=== PATIENT | female | born 1930 | race Caucasian/White ===

== ENCOUNTER 2016-08-02 22:28 | Inpatient (IN) | payer OTHER, MEDICARE ==
[~2016-08-02] VITALS: Ht 167.6 cm; Wt 58.3 kg
[~2016-08-02 22:28] MED LIST: ADVAI100I INH; ASPI81TA82 PO; BOOSLIQ PO; BRIM.15%O BOTH EYES; CALC600T34 PO; DOXY100 PO; DUONI NEB; FEXO180 PO; LOVA10TA PO; MUPI2CRE3 EX; OMEG5CAP; OMEP20TA PO; PRED20 PO; TAB-TAB PO; TIMO0.255 OU; TIOT18I INH; Z.0.OXYGENDME NC
[2016-08-02 22:50] VITALS: BP 112/60; PULSE 92; RESP 18; TEMP 100.6; O2SAT 100
[2016-08-02 22:58] VITALS: BP 112/60; PULSE 92; RESP 21; TEMP 100.6; O2SAT 100
[2016-08-02] MEDS ORDERED: SODIUM CHLOR 0.9% 1000 ML INJ 1,000 ML IV ONE (23:01)
[2016-08-02] MEDS ORDERED: CEFEPIME INJ 2,000 MG in SODIUM CHLORIDE 0.9% INJ 100 ML IV STA (23:01)
[2016-08-02] MEDS ORDERED: ACETAMINOPHEN 325 MG TAB PO ONE (23:15)
[2016-08-02 23:36] LABS: AUTOMATED NEUTROPHIL # 19.5 TH/MM3 (1.8-7.7); BASOPHIL # 0.1 TH/MM3 (0-0.2); BASOPHIL % 0.2 % (0.0-2.0); HEMATOCRIT 28.9 % (35.0-46.0); LYMPH % 2.5 % (9.0-44.0); LYMPHOCYTE # 0.5 TH/MM3 (1.0-4.8); MEAN CORPUSCULAR HEMOGLOBIN 22.1 PG (27.0-34.0); MEAN CORPUSCULAR HGB CONC 31.5 % (32.0-36.0); MONO % 3.8 % (0.0-8.0); NEUT % 93.5 % (16.0-70.0); PLATELET COUNT 297 TH/MM3 (150-450); RED BLOOD COUNT 4.13 MIL/MM3 (4.00-5.30); RED CELL DISTRIBUTION WIDTH 18.1 % (11.6-17.2); WHITE BLOOD COUNT 20.8 TH/MM3 (4.0-11.0)
[2016-08-02 23:39] LABS: BACTERIA, URINE RARE /hpf; BLOOD, URINE TRACE (NEG); COMMENT (UR) CATH-CULTURE IND; CULTURE IF INDICATED CATH CULTURE IND; GLUCOSE,URINE NEG (NEG); KETONE, URINE NEG (NEG); MUCUS URINE FEW /lpf (OCC); NITRITE,URINE NEG (NEG); PH, URINE 6.5 (5.0-8.5); RENAL EPITHELIAL CELLS <1 /hpf; SQUAMOUS EPITHELIAL CELL URINE 1 /hpf (0-5); URINE COLOR YELLOW (YELLW/STRAW)
[2016-08-02 23:44] LABS: APTT (PATIENT) 25.2 SEC (24.3-30.1); PROTHROMBIN TIME - PATIENT 11.2 SEC (9.8-11.6)
[2016-08-02 23:47] LABS: HEMO FLAGS AUTO DIFF
[2016-08-02 23:50] LABS: ALT (GPT) 12 U/L (10-53); ANION GAP 10 MEQ/L (5-15); AST (GOT) 18 U/L (15-37); BICARBONATE 25.3 MEQ/L (21.0-32.0); BLOOD UREA NITROGEN 15 MG/DL (7-18); CHLORIDE 102 MEQ/L (98-107); GLOMERULAR FILTRATION RATE 70 ML/MIN (>89); SODIUM (NA) 137 MEQ/L (136-145)
[2016-08-02 23:54] LABS: ALKALINE PHOSPHATASE 83 U/L (45-117); TOTAL BILIRUBIN ADULT 0.5 MG/DL (0.2-1.0)
[2016-08-03] VITALS (13 sets, daily range): BP systolic 88–143; BP diastolic 50–75; PULSE 61–89; RESP 16–25; TEMP 96.7–98.6; O2SAT 93–100
--- NOTE | 2016-08-03 00:03 | RADRPT ---
EXAM DATE/TIME: 08/02/2016 23:38 [facility] COMPARISON: No previous studies available for comparison. INDICATIONS : Altered mental status with fever. MEDICAL HISTORY : Chronic obstructive pulmonary disease. Dementia SURGICAL HISTORY : None. ENCOUNTER: Initial ACUITY: 1 day PAIN SCORE: 0/10 LOCATION: Bilateral chest FINDINGS: A single view of the chest demonstrates the lungs to be symmetrically aerated without evidence of mas s, infiltrate or effusion. The cardiomediastinal contours are unremarkable. Osseous structures are intact. CONCLUSION: No acute disease. Jaden Hendrix Jr., MD on August 03, 2016 at 0:00 Board Certified Radiologist. This report was verified electronically.
[2016-08-03] MEDS ORDERED: ASPI81CH37 CHEW (00:37)
[2016-08-03] MEDS ORDERED: BOOSLIQ PO (00:37)
[2016-08-03] MEDS ORDERED: ZOLO100T PO (00:37)
[2016-08-03] MEDS ORDERED: LATA0.002 EACH EYE (00:37)
[2016-08-03] MEDS ORDERED: BRIM0.2S4 EACH EYE (00:37)
[2016-08-03] MEDS ORDERED: LUTE20CA PO (00:37)
[2016-08-03] MEDS ORDERED: MULTCAP13 PO (00:37)
[2016-08-03] MEDS ORDERED: TIMO0.5S30 EACH EYE (00:37)
[2016-08-03] MEDS ORDERED: IOHEXOL 350 MG/ML 10 ML VIAL (for RAD DIAG) IV ONE (00:54)
[2016-08-03] MEDS ORDERED: ADVA100A INH (00:57)
[2016-08-03] MEDS ORDERED: OMEP20TA PO (00:57)
--- NOTE | 2016-08-03 01:20 | RADRPT ---
EXAM DATE/TIME: 08/03/2016 00:50 [facility] COMPARISON: No previous studies available for comparison. INDICATIONS : Altered mental status. RADIATION DOSE: 56.35 CTDIvol (mGy) MEDICAL HISTORY : Chronic obstructive pulmonary disease. Hemophilia SURGICAL HISTORY : None. ENCOUNTER: Initial ACUITY: 1 day PAIN SCALE: Non-responsive LOCATION: cranial TECHNIQUE: Multiple contiguous axial images were obtained of the head. Using automated exposure control and adj ustment of the mA and/or kV according to patient size, radiation dose was kept as low as reasonably a chievable to obtain optimal diagnostic quality images. 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 The ventricles are normal for age. No evidence of midline shift, mass lesion, hemorrhage or acu te infarction. No extra-axial fluid collections are seen. POSTERIOR FOSSA: The cerebellum and brainstem are intact. The 4th ventricle is midline. The cerebellopontine angle i s unremarkable. EXTRACRANIAL: The visualized portion of the orbits is intact. SKULL: The calvaria is intact. No evidence of skull fracture. CONCLUSION: No acute disease. Jaden Hendrix Jr., MD on August 03, 2016 at 1:17 Board Certified Radiologist. This report was verified electronically.
--- NOTE | 2016-08-03 01:25 | RADRPT ---
EXAM DATE/TIME: 08/03/2016 00:54 [facility] COMPARISON: No previous studies available for comparison. INDICATIONS : Abdomen pain. IV CONTRAST: 75 cc Omnipaque 350 (iohexol) IV ORAL CONTRAST: No oral contrast ingested. RADIATION DOSE: 9.96 CTDIvol (mGy) MEDICAL HISTORY : Chronic obstructive pulmonary disease. Hemophilia SURGICAL HISTORY : None. ENCOUNTER: Initial ACUITY: 1 day PAIN SCALE: Non-responsive LOCATION: abdomen TECHNIQUE: Volumetric scanning of the abdomen and pelvis was performed. Using automated exposure control and ad justment of the mA and/or kV according to patient size, radiation dose was kept as low as reasonably achievable to obtain optimal diagnostic quality images. FINDINGS: Breathing motion artifact degrades the study. LOWER LUNGS: 1.6 x 1.4 cm spiculated nodule is seen sitting atop the right hemidiaphragm. Emphysematous changes an d mild chronic interstitial changes also noted. LIVER: Homogeneous density without lesion. There is no dilation of the biliary tree. No calcified gallston es. SPLEEN: Normal size without lesion. PANCREAS: Within normal limits. KIDNEYS: Normal in size and shape. There is no mass, stone or hydronephrosis. A 1 cm simple cyst is seen invo lving the anterior midpole of the right kidney. ADRENAL GLANDS: Within normal limits. VASCULAR: Diffusely calcified abdominal aorta. No gross aneurysmal change seen. BOWEL/MESENTERY: The stomach, small bowel, and colon demonstrate no acute abnormality. There is no free intraperitone al air or fluid. Multiple colonic diverticuli. No acute inflammation observed. ABDOMINAL WALL: Within normal limits. RETROPERITONEUM: There is no lymphadenopathy. BLADDER: No wall thickening or mass. REPRODUCTIVE: There is a 2.6 cm cystic structure within the right adnexa. Hounsfield units are 17. Uterus is atroph ic and in the midline. No free fluid. INGUINAL: There is no lymphadenopathy or hernia. MUSCULOSKELETAL: Within normal limits for patient age. CONCLUSION: 1. No acute abnormality to explain the patient's pain. 2. 1.6 x 1.4 cm nodule involving the right lung base. A short-term followup CT of the thorax in 3-6 m [facility] is suggested. At this point a malignancy cannot be excluded. 3. 2.6 cm cystic structure within the right adnexa which is likely ovarian in nature. It can be furth er assessed with a short-term followup pelvic ultrasound if clinically warranted. 4. Colonic diverticulosis. Jaden Hendrix Jr., MD on August 03, 2016 at 1:19 Board Certified Radiologist. This report was verified electronically.
--- NOTE | 2016-08-03 01:33 | PD ---
HPI Chief Complaint: Fever Time Seen by Provider: 22:55 Travel History International Travel<30 days: No Contact w/Intl Traveler<30days: No Traveled to known affect area: No History of Present Illness HPI Patient is a 85 year old female who comes in from her [place] due to fever and altered mental status. Per EMS, she has history of dementia, but is usually more awake and active then she has been. Patient is unable to provide any history. [facility] Past Medical History Medical History: Unable to Obtain Autoimmune Disease: No Cancer: Yes High Cholesterol: No Chemotherapy: Yes COPD: Yes Endocrine: No Glaucoma: Yes Genitourinary: No Immune Disorder: No Musculoskeletal: No Neurologic: No Psychiatric: No Respiratory: Yes Radiation Therapy: Yes ?: Unknown Past Surgical History Surgical History: Unable to Obtain Section: Yes Eye Surgery: Yes (detach retina) Social History Alcohol Use: No Tobacco Use: No (quit two years ago ) Substance Use: No Allergies-Medications (Allergen,Severity, Reaction): Coded Allergies: Biaxin (Verified Allergy, Severe, NAUSEA VOMITING, 08/02/16) Bactrim (Verified Allergy, Unknown, 08/02/16) Enalapril (Verified Allergy, Unknown, 08/02/16) Lovastatin (Verified Allergy, Unknown, 08/02/16) Pravachol (Verified Allergy, Unknown, 08/02/16) *MDRO Multi-Drug Resistant Organism (Verified Adverse Reaction, Unknown, ) 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 Zoloft (Sertraline HCl) 100 Mg Tab 100 Mg PO DAILY Timolol Opth Drops 0.5 % Soln 1 Drop EACH EYE BID Lutein 20 Mg Cap 20 Mg PO DAILY Multi Complete (Multiple Vitamins W/ Minerals) 1 Cap Cap Unknown Dose PO DAILY Latanoprost Opth Drops (Latanoprost) 0.005% Drops 1 Drop EACH EYE HS Refrigerate until opened. Brimonidine Opth Drops (Brimonidine Tartrate) 0.2% Soln 1 Drop EACH EYE TID Boost Plus (Nutritional Supplements) 1 Liq Liq Unknown Dose PO DAILY Aspirin Low Dose (Aspirin) 81 Mg Chew 81 Mg CHEW DAILY Review of Systems ROS Limitations: Altered Mental Status Physical Exam Narrative GENERAL: Awake and alert, appears uncomfortable. SKIN: Focused skin assessment warm/dry. erythema to the right lower extremity, warm to the touch. HEAD: Atraumatic. Normocephalic. EYES: Pupils equal and round. No scleral icterus. ENT: Mucous membranes pink and moist. NECK: Trachea midline. No JVD. CARDIOVASCULAR: Regular rate and rhythm. No murmur appreciated. RESPIRATORY: No accessory muscle use. Clear to auscultation. Breath sounds equal bilaterally. GASTROINTESTINAL: Abdomen soft, nondistended. Tender to palpation of her suprapubic area. MUSCULOSKELETAL: No obvious deformities. No clubbing. No cyanosis. No edema. NEUROLOGICAL: Awake and alert, but not oriented. No obvious cranial nerve deficits. Motor grossly within normal limits. Data Data Last Documented VS Vital Signs Date Time Temp Pulse Resp B/P Pulse Ox O2 Delivery O2 Flow Rate FiO2 08/03/16 01:12 82 21 109/53 100 Nasal Cannula 2 08/02/16 22:58 100.6 Orders Electrocardiogram (08/02/16 23:) Complete Blood Count With Diff (08/02/16 23:) Comprehensive Metabolic Panel (08/02/16 23:) Prothrombin Time / Inr (Pt) (08/02/16:) Act Partial Throm Time (Ptt) (08/02/16 23:) Lactic Acid Sepsis Protocol (08/02/16 23:) Phosphorus (Po4) (08/02/16 23:) Lipase (08/02/16 23:) Troponin I (08/02/16:) Urinalysis - C+S If Indicated (08/02/16:) Ua Includes Microscopic (08/02/16:) Blood Culture (08/02/16:) Chest, Single Ap (08/02/16:) Blood Glucose (08/02/16 23:) Ecg Monitoring (08/02/16:) Iv Access Insert/Monitor (08/02/16 23:) Cath For Specimen (4/5/17 23:01) Oximetry (08/02/16 23:01) Oxygen Administration (08/02/16 23:01) Acetaminophen (Tylenol) (08/02/16 23:15) Ct Brain W/O Iv Contrast(Rout) (08/02/16 23:01) Cefepime Inj (Maxipime Inj) (08/02/16 23:01) Sodium Chlor 0.9% 1000 Ml Inj (Ns 1000 M (08/02/16 23:01) Urine Culture (08/02/16 23:25) Ct Abd/Pel W Iv Contrast(Rout) (08/03/16 ) Diet Regular Basic (08/03/16 Breakfast) Vital Signs (Adult) LATASHA.Q4H (08/03/16 01:49) Acetaminophen (Tylenol) (08/03/16 02:00) Ondansetron Inj (Zofran Inj) (08/03/16 02:00) Ceftriaxone Inj (Rocephin Inj) (08/03/16 06:00) Complete Blood Count With Diff (08/04/16 06:00) Admit Order (Ed Use Only) (08/03/16 ) Labs Laboratory Tests Test 08/02/16 23:25 Prothrombin Time 11.2 SEC Prothromb Time International 1.0 RATIO Ratio Activated Partial 25.2 SEC Thromboplast Time Sodium Level 137 MEQ/L Potassium Level 4.0 MEQ/L Chloride Level 102 MEQ/L Carbon Dioxide Level 25.3 MEQ/L Anion Gap 10 MEQ/L Blood Urea Nitrogen 15 MG/DL Creatinine 0.78 MG/DL Estimat Glomerular Filtration 70 ML/MIN Rate Random Glucose 119 MG/DL Lactic Acid Level 1.4 mmol/L Calcium Level 9.0 MG/DL Phosphorus Level 2.5 MG/DL Total Bilirubin 0.5 MG/DL Aspartate Amino Transf 18 U/L (AST/SGOT) Alanine Aminotransferase 12 U/L (ALT/SGPT) Alkaline Phosphatase 83 U/L Troponin I LESS THAN 0.02 NG/ML Total Protein 7.7 GM/DL Albumin 3.1 GM/DL Lipase 92 U/L White Blood Count 20.8 TH/MM3 Red Blood Count 4.13 MIL/MM3 Hemoglobin 9.1 GM/DL Hematocrit 28.9 % Mean Corpuscular Volume 70.0 FL Mean Corpuscular Hemoglobin 22.1 PG Mean Corpuscular Hemoglobin 31.5 % Concent Red Cell Distribution Width 18.1 % Platelet Count 297 TH/MM3 Mean Platelet Volume 9.8 FL Neutrophils (%) (Auto) 93.5 % Lymphocytes (%) (Auto) 2.5 % Monocytes (%) (Auto) 3.8 % Eosinophils (%) (Auto) 0.0 % Basophils (%) (Auto) 0.2 % Neutrophils # (Auto) 19.5 TH/MM3 Lymphocytes # (Auto) 0.5 TH/MM3 Monocytes # (Auto) 0.8 TH/MM3 Eosinophils # (Auto) 0.0 TH/MM3 Basophils # (Auto) 0.1 TH/MM3 CBC Comment AUTO DIFF Differential Total Cells 100 Counted Neutrophils % (Manual) 76 % Band Neutrophils % 18 % Lymphocytes % 5 % Monocytes % 1 % Neutrophils # (Manual) 19.6 TH/MM3 Differential Comment FINAL DIFF MANUAL Toxic Granulation 1+ Toxic Vacuolation PRESENT Platelet Estimate NORMAL Platelet Morphology Comment NORMAL Ovalocytes 1+ Urine Color YELLOW Urine Turbidity HAZY Urine pH 6.5 Urine Specific [place] 1.018 Urine Protein 30 mg/dL Urine Glucose (UA) NEG mg/dL Urine Ketones NEG mg/dL Urine Occult Blood TRACE Urine Nitrite NEG Urine Bilirubin NEG Urine Urobilinogen 2.0 MG/DL Urine Leukocyte Esterase MOD Urine RBC 4 /hpf Urine WBC 29 /hpf Urine Squamous Epithelial 1 /hpf Cells Urine Renal Epithelial Cells <1 /hpf Urine Amorphous Sediment RARE Urine Bacteria RARE /hpf Urine Mucus FEW /lpf Microscopic Urinalysis Comment CATH-CULTURE IND MDM Medical Decision Making Medical Screen Exam Complete: Yes Emergency Medical Condition: Yes Interpretation(s) ECG shows normal sinus rhythm at 80, no ST elevation or depression, incomplete right bundle-branch block Differential Diagnosis Sepsis versus pneumonia versus UTI versus electrolyte abnormality Narrative Course Patient is an 85-year-old female comes in from the senior living due to altered mental status and fever. Exam shows some suprapubic tenderness. IV established , labs sent. Urinalysis positive for infection. Labs show white blood cell count of 20. CT head performed shows no acute abnormalities. CT abdomen and pelvis performed shows no acute abnormalities, there is a small lung nodule any ovarian cystic mass. Patient given cefepime, IV fluids, Tylenol. Admitted for further management. Diagnosis Primary Impression: Sepsis Qualified Code: A41.9 - Sepsis, due to unspecified organism Additional Impression: UTI (urinary tract infection) Qualified Code: N30.00 - Acute cystitis without hematuria Admitting Information Admitting Physician Requests: it Karoline Castellanos MD Aug 03, 2016 01:33
[2016-08-03] MEDS ORDERED: ONDANSETRON HCL 4 MG/2 ML VIAL IV PUSH PRN (02:00)
[2016-08-03 02:06] LABS: BANDS 18 % (0-6); NEUTROPHIL # MANUAL DIFF 19.6 TH/MM3 (1.8-7.7); PLATELET ESTIMATE SMEAR NORMAL (NORMAL); PLATELET MORPHOLOGY NORMAL (NORMAL); POLYS (SEG NEUTROPHILS) 76 % (16-70); SCAN/DIFF FINAL DIFF MANUAL; TOXIC GRANULATION 1+ (NORMAL); WBC DIFF SAMPLE 100
[2016-08-03 02:07] LABS: OVALOCYTES 1+ (NORMAL); TOXIC VACUOLATION PRESENT (NONE SEEN)
--- NOTE | 2016-08-03 02:51 | HHI.HP ---
[facility] Service [facility] Primary Care Physician Noe Acharya Admission Diagnosis urosepsis Diagnoses: (1) Sepsis Diagnosis: Principal (2) UTI (urinary tract infection) Diagnosis: Principal Chief Complaint: fever Travel History International Travel<30 Days: No Contact w/Intl Traveler <30 Da: No Traveled to Known Affected Are: No Sepsis Criteria SIRS Criteria (2 or more): Heart rate over 90, WBC > 41402, < 4000 or > 10% bands Sepsis Criteria (SIRS+source): Infect source susp/known Criteria Outcome: Meets sepsis criteria History of Present Illness patient is a 85 y/o female, alf resident, with history of dementia who was sent to the hospital because of fever and altered mental status. information is limited due to the patient's dementia. she was noted to have a fever at the time of presentation to ER. according to ER noted she was not as alert as her baseline earlier. Review of Systems ROS Limitations: Poor Historian Constitutional: COMPLAINS OF: Fever Past Family Social History Past Medical History dementia COPD bladder cancer dyslipidemia osteoporosis Past Surgical History Reported Medications Omeprazole 20 Mg Tab 20 Mg PO GERD PRN Advair Diskus Inh (Fluticasone-Salmeterol Inh) 100-50 Mcg/Blist Aer 1 Puff INH BID Rinse mouth after use. Zoloft (Sertraline HCl) 100 Mg Tab 100 Mg PO DAILY Timolol Opth Drops 0.5 % Soln 1 Drop EACH EYE BID Lutein 20 Mg Cap 20 Mg PO DAILY Multi Complete (Multiple Vitamins W/ Minerals) 1 Cap Cap Unknown Dose PO DAILY Latanoprost Opth Drops (Latanoprost) 0.005% Drops 1 Drop EACH EYE HS Refrigerate until opened. 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) Uncoded Allergies: DIPTHERIA INJECTION (Allergy, Unknown, 11/15/15) Active Ordered Medications Current Medications Acetaminophen 650 mg 650 mg ONCE ONCE PO Last administered on 08/02/16 23:43; Start 08/02/16 at 23:15; Stop 08/02/16 at 23:22; Status DC Cefepime HCl 2000 mg/Sodium Chloride 100 ml @ 200 mls/hr ONCE STAT IV Last administered on 08/02/16 23:43; Start 08/02/16 at 23:01; Stop 08/02/16 at 23:30; Status DC Sodium Chloride (NS 1000 ml Inj) 1,000 ml @ 1,000 mls/hr Q1H ONCE IV Last administered on 08/02/16 23:43; Start 08/02/16 at 23:01; Stop 08/03/16 at 00:00; Status DC Acetaminophen (Tylenol) 650 mg Q4H PRN PO FEVER/PAIN 1-10; Start 08/03/16 at 02: 00 Ondansetron HCl 4 mg 4 mg Q8H PRN IV PUSH NAUSEA; Start 08/03/16 at 02:00 Ceftriaxone Sodium/Sodium Chloride (Rocephin Inj/NS Inj) 100 ml @ 200 mls/hr Q24H IV ; Start 08/03/16 at 06:00 Family History could not be obtained. Social History alf resident. Physical Exam Vital Signs Vital Signs Date Time Temp Pulse Resp B/P Pulse Ox O2 Delivery O2 Flow Rate FiO2 08/03/16 01:12 82 21 109/53 100 Nasal Cannula 2 08/03/16 00:29 100 2 08/02/16 22:58 100.6 92 21 112/60 100 Nasal Cannula 2 08/02/16 22:55 94 21 100 2 08/02/16 22:50 100.6 92 18 112/60 100 Physical Exam GENERAL: This is a well-nourished, well-developed patient, in no apparent distress. SKIN: No rashes, ecchymoses or lesions. Cool and dry. HEAD: Atraumatic. Normocephalic. No temporal or scalp tenderness. EYES: Pupils equal round and reactive. Extraocular motions intact. No scleral icterus. No injection or drainage. ENT: Nose without bleeding, purulent drainage or septal hematoma. Throat without erythema, tonsillar hypertrophy or exudate. Uvula midline. Airway patent. NECK: Trachea midline. No JVD or lymphadenopathy. Supple, nontender, no meningeal signs. CARDIOVASCULAR: Regular rate and rhythm without murmurs, gallops, or rubs. RESPIRATORY: Clear to auscultation. Breath sounds equal bilaterally. No wheezes , rales, or rhonchi. GASTROINTESTINAL: Abdomen soft, non-tender, nondistended. No hepato-splenomegaly , or palpable masses. No guarding. MUSCULOSKELETAL: Extremities without clubbing, cyanosis, or edema. No joint tenderness, effusion, or edema noted. No calf tenderness. Negative Homans sign bilaterally. NEUROLOGICAL: demented. Laboratory Laboratory Tests Test 08/02/16 23:25 Prothrombin Time 11.2 Prothromb Time International 1.0 Ratio Activated Partial 25.2 Thromboplast Time Sodium Level 137 Potassium Level 4.0 Chloride Level 102 Carbon Dioxide Level 25.3 Anion Gap 10 Blood Urea Nitrogen 15 Creatinine 0.78 Estimat Glomerular Filtration 70 Rate Random Glucose 119 Lactic Acid Level 1.4 Calcium Level 9.0 Phosphorus Level 2.5 Total Bilirubin 0.5 Aspartate Amino Transf 18 (AST/SGOT) Alanine Aminotransferase 12 (ALT/SGPT) Alkaline Phosphatase 83 Troponin I LESS THAN 0.02 Total Protein 7.7 Albumin 3.1 Lipase 92 White Blood Count 20.8 Red Blood Count 4.13 Hemoglobin 9.1 Hematocrit 28.9 Mean Corpuscular Volume 70.0 Mean Corpuscular Hemoglobin 22.1 Mean Corpuscular Hemoglobin 31.5 Concent Red Cell Distribution Width 18.1 Platelet Count 297 Mean Platelet Volume 9.8 Neutrophils (%) (Auto) 93.5 Lymphocytes (%) (Auto) 2.5 Monocytes (%) (Auto) 3.8 Eosinophils (%) (Auto) 0.0 Basophils (%) (Auto) 0.2 Neutrophils # (Auto) 19.5 Lymphocytes # (Auto) 0.5 Monocytes # (Auto) 0.8 Eosinophils # (Auto) 0.0 Basophils # (Auto) 0.1 CBC Comment AUTO DIFF Differential Total Cells 100 Counted Neutrophils % (Manual) 76 Band Neutrophils % 18 Lymphocytes % 5 Monocytes % 1 Neutrophils # (Manual) 19.6 Differential Comment FINAL DIFF MANUAL Toxic Granulation 1+ Toxic Vacuolation PRESENT Platelet Estimate NORMAL Platelet Morphology Comment NORMAL Ovalocytes 1+ Urine Color YELLOW Urine Turbidity HAZY Urine pH 6.5 Urine Specific [place] 1.018 Urine Protein 30 Urine Glucose (UA) NEG Urine Ketones NEG Urine Occult Blood TRACE Urine Nitrite NEG Urine Bilirubin NEG Urine Urobilinogen 2.0 Urine Leukocyte Esterase MOD Urine RBC 4 Urine WBC 29 Urine Squamous Epithelial 1 Cells Urine Renal Epithelial Cells <1 Urine Amorphous Sediment RARE Urine Bacteria RARE Urine Mucus FEW Microscopic Urinalysis Comment CATH-CULTURE IND Date/Time Procedure Status Source Growth 08/02/16 23:25 Urine Culture Received Urine Catheterized Urine Pending 08/02/16 23:25 Aerobic Blood Culture Received Blood Peripheral Pending 08/02/16 23:25 Anaerobic Blood Culture Received Blood Peripheral Pending Result Diagram: 08/02/16 2325 08/02/165 Imaging Last Impressions Abdomen/Pelvis CT 08/03/16 0000 Signed Impressions: Service Date/Time: July 00:54 - CONCLUSION: 1. No acute abnormality to explain the patient's pain. 2. 1.6 x 1.4 cm nodule involving the right lung base. A short-term followup CT of the thorax in 3-6 months is suggested. At this point a malignancy cannot be excluded. 3. 2.6 cm cystic structure within the right adnexa which is likely ovarian in nature. It can be further assessed with a short-term followup pelvic ultrasound if clinically warranted. 4. Colonic diverticulosis. Jaden Hendrix Jr., MD Head CT 08/02/162300 Signed Impressions: Service Date/Time: July 00:50 - CONCLUSION: No acute disease. Jaden Hendrix Jr., MD Chest X-Ray 08/02/162300 Signed Impressions: Service Date/Time: Tuesday, August 02, 2016 23:38 - CONCLUSION: No acute disease. Jaden Hendrix Jr., MD Assessment and Plan Assessment and Plan A/P - sepsis ( leukocytosis/ tachycardia/fever) due to UTI continue IV antibiotic- follow the cultures -COPD with no exacerbation;resume advair- neb treatment as needed -glaucoma; resume home eye drops -DVT prophylaxis with SCD's -DNR status Discussed Condition With ER physician. Physician Certification 2 Midnight Certification Type: Admission for Inpatient Services Order for Inpatient Services The services are ordered in accordance with Medicare regulations or non- Medicare payer requirements, as applicable. In the case of services not specified as inpatient-only, they are appropriately provided as inpatient services in accordance with the 2-midnight benchmark. Estimated LOS (days): 2 days is the estimated time the patient will need to remain in the hospital, assuming treatment plan goals are met and no additional complications. Post-Hospital Plan: SNF Problem Qualifiers (1) Sepsis: Qualified Code: A41.9 - Sepsis, due to unspecified organism (2) UTI (urinary tract infection): Qualified Code: N30.00 - Acute cystitis without hematuria Colleen Frias MD Aug 03, 2016 02:51
[2016-08-03] MEDS ORDERED: RESP: ALBUTEROL 1.25 MG/3 ML NEB (PRN) NEB (03:00)
[2016-08-03] MEDS ORDERED: PANTOPRAZOLE SOD 20 MG DELAYED RELEASE TAB PO PRN (03:15)
[2016-08-03] MEDS ORDERED: SODIUM CHLOR 0.9% 250 ML INJ 250 ML IV ONE (04:45)
[2016-08-03] MEDS: cefTRIAXone INJ 1,000 MG in SODIUM CHLORIDE 0.9% INJ 100 ML IV SCH (06:09)
[2016-08-03] MEDS: TIMOLOL MALEATE 0.5% OPHT SOLN 5 ML BTL EACH EYE SCH ×2 (09:00→20:24)
[2016-08-03] MEDS: BRIMONIDINE TARTRATE 0.2% OPHT SOLN 5 ML BTL EACH EYE SCH ×4 (09:00→20:23)
[2016-08-03] MEDS: SERTRALINE HCL 100 MG TAB PO SCH (09:21)
[2016-08-03] MEDS: ASPIRIN 81 MG CHEW TAB CHEW SCH (09:21)
[2016-08-03] MEDS: BUDESONIDE-FORMOTEROL 80/4.5 MCG INHALER INH SCH ×2 (10:06→20:25)
--- NOTE | 2016-08-03 11:28 | HHI.PR ---
Subjective Remarks Follow-up for sepsis/UTI Patient is AAO 2 and she is able to answer question appropriately. Patient able to tell me her name and that she was in the hospital. She could not tell me the date. Her son is at the bedside and stated that patient is back to her baseline. Patient has dementia and resides in a assisted. She remains afebrile. Deny any pain. No other complaints. Objective Vitals Vital Signs Date Time Temp Pulse Resp B/P Pulse Ox O2 Delivery O2 Flow Rate FiO2 08/03/16 08:27 73 24 107/65 100 Nasal Cannula 2 08/03/16 08:15 75 25 107/65 100 Nasal Cannula 2 08/03/16 06:09 66 25 113/55 100 Nasal Cannula 2 08/03/16 05:30 70 19 121/58 100 Nasal Cannula 2 08/03/16 04:29 68 17 88/50 100 Nasal Cannula 2 08/03/16 03:07 75 21 104/55 100 Nasal Cannula 2 08/03/16 01:12 82 21 109/53 100 Nasal Cannula 2 08/03/16 00:29 100 2 08/02/16 22:58 100.6 92 21 112/60 100 Nasal Cannula 2 08/02/16 22:55 94 21 100 2 08/02/16 22:50 100.6 92 18 112/60 100 Result Diagram: 08/02/16232408/02/162324 Objective Remarks GENERAL: in NAD CARDIOVASCULAR: Regular rate and rhythm without murmurs, gallops, or rubs. RESPIRATORY: Breath sounds equal bilaterally. No accessory muscle use. GASTROINTESTINAL: Abdomen soft, non-tender, nondistended. MUSCULOSKELETAL: No cyanosis, or edema. BACK: Nontender without obvious deformity. No CVA tenderness. Medications and IVs Current Medications Acetaminophen 650 mg 650 mg ONCE ONCE PO Last administered on 08/02/16 23:43; Start 08/02/16 at 23:15; Stop 08/02/16 at 23:22; Status DC Cefepime HCl 2000 mg/Sodium Chloride 100 ml @ 200 mls/hr ONCE STAT IV Last administered on 08/02/16 23:43; Start 08/02/16 at 23:01; Stop 08/02/16 at 23:30; Status DC Sodium Chloride (NS 1000 ml Inj) 1,000 ml @ 1,000 mls/hr Q1H ONCE IV Last administered on 08/02/16 23:43; Start 08/02/16 at 23:01; Stop 08/03/16 at 00:00; Status DC Acetaminophen (Tylenol) 650 mg Q4H PRN PO FEVER/PAIN 1-10; Start 08/03/16 at 02: 00 Ondansetron HCl 4 mg 4 mg Q8H PRN IV PUSH NAUSEA; Start 08/03/16 at 02:00 Ceftriaxone Sodium/Sodium Chloride (Rocephin Inj/NS Inj) 100 ml @ 200 mls/hr Q24H IV Last administered on 08/03/16 06:09; Start 08/03/16 at 06:00 Aspirin (Aspirin Chew) 81 mg DAILY CHEW Last administered on 08/03/16 09:21; Start 08/03/16 at 09:00 Brimonidine Tartrate (Alphagan 0.2% Opth Soln) 1 drop TID EACH EYE ; Start at 09:00 Latanoprost (Xalatan 0.005% Opth Soln) 1 drop HS EACH EYE ; Start 08/03/16 at 21: 00 Sertraline HCl (Zoloft) 100 mg DAILY PO Last administered on 08/03/16 09:21; Start 08/03/16 at 09:00 Timolol Maleate (Timoptic 0.5% Opth Soln) 1 drop BID EACH EYE ; Start 08/03/16 at 09:00 Budesonide/ Formoterol Fumarate (Symbicort 80-4.5 Mcg Inh) 2 puff BID INH Last administered on 08/03/16 10:06; Start 08/03/16 at 09:00 Pantoprazole Sodium (Protonix) 20 mg DAILY PRN PO SEE LABEL COMMENTS; Start 08/03/16 at 03:15 Albuterol Sulfate 1.25 mg 1.25 mg Q4HR NEB PRN NEB SHORTNESS OF BREATH; Start 08/03/16 at 03:00 Sodium Chloride (NS 250 ml Inj) 250 ml @ 250 mls/hr BOLUS ONCE IV Last administered on 08/03/16 04:45; Start 08/03/16 at 04:45; Stop 08/03/16 at 05:44; Status DC A/P Problem List: (1) Sepsis ICD Code: A41.9 Status: Acute (2) UTI (urinary tract infection) ICD Code: N39.0 Status: Acute Assessment and Plan Sepsis -Patient had leukocytosis, tachycardia, and fever. UA suggest UTI. -Patient given a dose of cefepime in the ED and was changed to Rocephin. We'll continue Rocephin since patient clinically is doing well. We'll continue Rocephin pending urine cultures. COPD with no exacerbation -resume advair- neb treatment as needed Dementia -Per patient's son patient is at her baseline at the moment. glaucoma -Continue with home medication. -DVT prophylaxis with SCD's DNR status Discharge Planning Patient will continue to require IV antibiotics pending urine cultures. Problem Qualifiers (1) Sepsis: Qualified Code: A41.9 - Sepsis, due to unspecified organism (2) UTI (urinary tract infection): Qualified Code: N30.00 - Acute cystitis without hematuria Shagufta Davenport MD Aug 03, 2016 11:28
--- NOTE | 2016-08-03 12:50 | EKG ---
Date Performed: 08/03/2016 Time Performed: 00:14:47 PTAGE: 85 years EKG: Sinus rhythm POSSIBLE LEFT ATRIAL ENLARGEMENT INCOMPLETE RIGHT BUNDLE BRANCH BLOCK BORDERLINE ECG PREVIOUS TRACING : 11/15/2015 12.41 Compared to prior tracing no significant change DOCTOR: Jeff Anaya Interpretating Date/Time 08/03/2016 12:49:13
[2016-08-03] MEDS: ACETAMINOPHEN 325 MG TAB PO PRN (18:18)
[2016-08-03] MEDS: LATANOPROST 0.005% OPHT SOLN 2.5 ML BTL EACH EYE SCH (20:24)
[2016-08-04] MEDS: cefTRIAXone INJ 1,000 MG in SODIUM CHLORIDE 0.9% INJ 100 ML IV SCH (04:42)
[2016-08-04 06:30] LABS: AUTOMATED NEUTROPHIL # 18.8 TH/MM3 (1.8-7.7); EOSINOPHIL % 0.1 % (0.0-4.0); HEMATOCRIT 31.1 % (35.0-46.0); LYMPH % 1.8 % (9.0-44.0); LYMPHOCYTE # 0.4 TH/MM3 (1.0-4.8); MEAN CELL VOLUME 70.3 FL (80.0-100.0); MEAN CORPUSCULAR HEMOGLOBIN 21.4 PG (27.0-34.0); MEAN CORPUSCULAR HGB CONC 30.4 % (32.0-36.0); MONO % 1.4 % (0.0-8.0); NEUT % 96.7 % (16.0-70.0); PLATELET COUNT 238 TH/MM3 (150-450); RED BLOOD COUNT 4.42 MIL/MM3 (4.00-5.30); RED CELL DISTRIBUTION WIDTH 18.2 % (11.6-17.2); WHITE BLOOD COUNT 19.5 TH/MM3 (4.0-11.0)
[2016-08-04 06:31] LABS: HEMO FLAGS AUTO DIFF
[2016-08-04 07:01] LABS: BANDS 58 % (0-6); NEUTROPHIL # MANUAL DIFF 19.1 TH/MM3 (1.8-7.7); POLYS (SEG NEUTROPHILS) 40 % (16-70); WBC DIFF SAMPLE 100
[2016-08-04 07:03] LABS: KERATOCYTES OCC (NORMAL); PLATELET ESTIMATE SMEAR NORMAL (NORMAL); PLATELET MORPHOLOGY NORMAL (NORMAL); SCAN/DIFF FINAL DIFF MANUAL; TOXIC GRANULATION 1+ (NORMAL)
[2016-08-04 08:00] VITALS: BP 130/61; PULSE 99; RESP 18; TEMP 99.3; O2SAT 95
[2016-08-04] MEDS: ASPIRIN 81 MG CHEW TAB CHEW SCH (08:25)
[2016-08-04] MEDS: SERTRALINE HCL 100 MG TAB PO SCH (08:25)
[2016-08-04] MEDS: BUDESONIDE-FORMOTEROL 80/4.5 MCG INHALER INH SCH ×2 (08:26→20:30)
[2016-08-04] MEDS: TIMOLOL MALEATE 0.5% OPHT SOLN 5 ML BTL EACH EYE SCH ×2 (08:26→20:29)
[2016-08-04] MEDS: ACETAMINOPHEN 325 MG TAB PO PRN ×2 (08:26→17:39)
[2016-08-04] MEDS: SODIUM CHLOR 0.9% 1000 ML INJ 1,000 ML IV SCH ×2 (09:32→22:06)
--- NOTE | 2016-08-04 09:36 | HHI.PR ---
Subjective Remarks Follow-up for sepsis due to UTI Patient is more lethargic today. I'm able to wake her up but then she goes back to sleep quickly. When I push on her lower abdomen she does have some tenderness and states "ouch. " When I palpate in that area. She remains afebrile. Dealt with patient's nurse and he stated that she has been more lethargic today. Objective Vitals Vital Signs Date Time Temp Pulse Resp B/P Pulse Ox O2 Delivery O2 Flow Rate FiO2 08/04/16 08:00 99.3 99 18 130/61 95 08/03/16 23:55 97.2 77 19 123/58 93 08/03/16 20:00 98.6 89 19 142/75 93 08/03/16 16:00 96.7 69 19 131/58 96 08/03/16 14:26 72 16 143/65 99 Nasal Cannula 2 08/03/16 11:53 61 16 135/63 100 Nasal Cannula 2 I/O 08/03/16 08/03/16 08/03/16 08/04/16 08/04/16 08/04/16 07:00 15:00 23:00 07:00 15:00 23:00 Intake Total 120 ml 120 ml Balance 120 ml 120 ml Intake Oral 120 ml 120 ml # Voids 1 3 # Bowel Movements 1 1 Result Diagram: 08/04/16 0427 08/02/16 2325 Objective Remarks GENERAL: in NAD CARDIOVASCULAR: Regular rate and rhythm without murmurs, gallops, or rubs. RESPIRATORY: Breath sounds equal bilaterally. No accessory muscle use. GASTROINTESTINAL: Abdomen soft, + TTP in lower abdominal area, nondistended. MUSCULOSKELETAL: No cyanosis, or edema. BACK: No CVA tenderness. Medications and IVs Current Medications Acetaminophen 650 mg 650 mg ONCE ONCE PO Last administered on 08/02/16 23:43; Start 08/02/16 at 23:15; Stop 08/02/16 at 23:22; Status DC Cefepime HCl 2000 mg/Sodium Chloride 100 ml @ 200 mls/hr ONCE STAT IV Last administered on 08/02/16 23:43; Start 08/02/16 at 23:01; Stop 08/02/16 at 23:30; Status DC Sodium Chloride (NS 1000 ml Inj) 1,000 ml @ 1,000 mls/hr Q1H ONCE IV Last administered on 08/02/16 23:43; Start 08/02/16 at 23:01; Stop 08/03/16 at 00:00; Status DC Acetaminophen (Tylenol) 650 mg Q4H PRN PO FEVER/PAIN 1-10 Last administered on 08/04/16 08:26; Start 08/03/16 at 02:00 Ondansetron HCl 4 mg 4 mg Q8H PRN IV PUSH NAUSEA; Start 08/03/16 at 02:00 Ceftriaxone Sodium/Sodium Chloride (Rocephin Inj/NS Inj) 100 ml @ 200 mls/hr Q24H IV Last administered on 08/04/16 04:42; Start 08/03/16 at 06:00; Stop at 09:26; Status DC Aspirin (Aspirin Chew) 81 mg DAILY CHEW Last administered on 08/04/16 08:25; Start 08/03/16 at 09:00 Brimonidine Tartrate (Alphagan 0.2% Opth Soln) 1 drop TID EACH EYE Last administered on 08/03/16 20:23; Start 08/03/16 at 09:00 Latanoprost (Xalatan 0.005% Opth Soln) 1 drop HS EACH EYE Last administered on 08/03/16 20:24; Start 08/03/16 at 21:00 Sertraline HCl (Zoloft) 100 mg DAILY PO Last administered on 08/04/16 08:25; Start 08/03/16 at 09:00 Timolol Maleate (Timoptic 0.5% Opth Soln) 1 drop BID EACH EYE Last administered on 08/04/16 08:26; Start 08/03/16 at 09:00 Budesonide/ Formoterol Fumarate (Symbicort 80-4.5 Mcg Inh) 2 puff BID INH Last administered on 08/04/16 08:26; Start 08/03/16 at 09:00 Pantoprazole Sodium (Protonix) 20 mg DAILY PRN PO SEE LABEL COMMENTS; Start 08/03/16 at 03:15 Albuterol Sulfate 1.25 mg 1.25 mg Q4HR NEB PRN NEB SHORTNESS OF BREATH; Start 08/03/16 at 03:00 Sodium Chloride 250 ml @ 250 mls/hr BOLUS ONCE IV Last administered on t 04:45; Start 08/03/16 at 04:45; Stop 08/03/16 at 05:44; Status DC Sodium Chloride 1,000 ml @ 75 mls/hr [id number] IV ; Start 08/04/16 at 09:30 Cefepime HCl/ Sodium Chloride (Maxipime Inj/NS Inj) 100 ml @ 200 mls/hr Q12H IV ; Start 08/04/16 at 10:00 A/P Problem List: (1) Sepsis ICD Code: A41.9 Status: Acute (2) UTI (urinary tract infection) ICD Code: N39.0 Status: Acute Assessment and Plan Sepsis -Patient had leukocytosis, tachycardia, and fever. UA suggest UTI. -Patient given a dose of cefepime in the ED and was changed to Rocephin. -Since patient is more lethargic and leukocytosis decrease minimally will change Rocephin to cefepime to cover for Pseudomonas pending urine cultures. -Since patient has decreased by mouth intake will restart IV fluids. COPD with no exacerbation -continue advair- neb treatment as needed Dementia -Per patient's son patient is at her baseline at the moment. glaucoma -Continue with home medication. -DVT prophylaxis with SCD's DNR status Discharge Planning Patient will continue to require IV antibiotics pending urine cultures. Problem Qualifiers (1) Sepsis: Qualified Code: A41.9 - Sepsis, due to unspecified organism (2) UTI (urinary tract infection): Qualified Code: N30.00 - Acute cystitis without hematuria Shagufta Davenport MD Aug 04, 2016 09:36
[2016-08-04] MEDS: CEFEPIME INJ 1,000 MG in SODIUM CHLORIDE 0.9% INJ 100 ML IV SCH ×2 (10:17→22:06)
[2016-08-04 12:00] VITALS: BP 102/52; PULSE 81; RESP 16; TEMP 98.3; O2SAT 93
[2016-08-04 12:03] LABS: BICARBONATE 22.7 MEQ/L (21.0-32.0); POTASSIUM 3.5 MEQ/L (3.5-5.1)
[2016-08-04] MEDS: BRIMONIDINE TARTRATE 0.2% OPHT SOLN 5 ML BTL EACH EYE SCH ×2 (12:37→17:41)
[2016-08-04 16:00] VITALS: BP 96/50; PULSE 95; RESP 16; TEMP 96.7; O2SAT 95
[2016-08-04] MEDS ORDERED: MORPHINE SULFATE 4 MG/ML INJ IV PUSH PRN ×2 (17:45→23:45)
[2016-08-04 17:52] VITALS: O2SAT 95
[2016-08-04 20:00] VITALS: BP 80/48; PULSE 81; RESP 19; TEMP 97; O2SAT 94
[2016-08-04 20:02] VITALS: O2SAT 95
[2016-08-04] MEDS: LATANOPROST 0.005% OPHT SOLN 2.5 ML BTL EACH EYE SCH (20:29)
[2016-08-04] MEDS ORDERED: SODIUM CHLOR 0.9% 1000 ML INJ 1,000 ML IV ONE (22:30)
[2016-08-05 00:04] VITALS: BP 97/53; PULSE 83; RESP 21; TEMP 97.4; O2SAT 96
[2016-08-05 04:00] VITALS: BP 123/55; PULSE 95; RESP 20; TEMP 96.8; O2SAT 93
[2016-08-05 06:07] LABS: HEMATOCRIT 26.8 % (35.0-46.0); MEAN CELL VOLUME 68.9 FL (80.0-100.0); MEAN CORPUSCULAR HEMOGLOBIN 21.1 PG (27.0-34.0); MEAN CORPUSCULAR HGB CONC 30.6 % (32.0-36.0); PLATELET COUNT 254 TH/MM3 (150-450); RED BLOOD COUNT 3.89 MIL/MM3 (4.00-5.30); RED CELL DISTRIBUTION WIDTH 18.2 % (11.6-17.2); WHITE BLOOD COUNT 17.9 TH/MM3 (4.0-11.0)
[2016-08-05 06:21] LABS: REVIEW FLAG FINAL
[2016-08-05 06:37] LABS: BICARBONATE 22.7 MEQ/L (21.0-32.0)
[2016-08-05 08:00] VITALS: BP 133/63; PULSE 89; RESP 16; TEMP 98.1; O2SAT 97
[2016-08-05] MEDS: CEFEPIME INJ 1,000 MG in SODIUM CHLORIDE 0.9% INJ 100 ML IV SCH ×2 (08:31→20:19)
[2016-08-05] MEDS: ASPIRIN 81 MG CHEW TAB CHEW SCH (08:32)
[2016-08-05] MEDS: BRIMONIDINE TARTRATE 0.2% OPHT SOLN 5 ML BTL EACH EYE SCH ×3 (08:32→17:08)
[2016-08-05] MEDS: TIMOLOL MALEATE 0.5% OPHT SOLN 5 ML BTL EACH EYE SCH ×2 (08:32→20:19)
[2016-08-05] MEDS: BUDESONIDE-FORMOTEROL 80/4.5 MCG INHALER INH SCH ×2 (08:32→20:19)
[2016-08-05] MEDS: SERTRALINE HCL 100 MG TAB PO SCH (08:33)
[2016-08-05] MEDS ORDERED: POTASSIUM CHLORIDE 10 MEQ CONTROLLED RELEASE TAB PO ONE (10:15)
[2016-08-05 12:00] VITALS: BP 115/59; PULSE 81; RESP 16; TEMP 94.4; O2SAT 97
[2016-08-05] MEDS: SODIUM CHLOR 0.9% 1000 ML INJ 1,000 ML IV SCH (12:41)
[2016-08-05] MEDS: ACETAMINOPHEN/HYDROcodone 325 MG/5 MG TAB PO PRN ×2 (13:53→23:44)
[2016-08-05 16:00] VITALS: BP_SYST 105; BP_SYST 193; BP_DIAS 51; BP_DIAS 93; PULSE 57; PULSE 86; RESP 16; RESP 19; TEMP 96.9; TEMP 98.6; O2SAT 93; O2SAT 95
--- NOTE | 2016-08-05 16:35 | HHI.PR ---
Subjective Remarks f/u for UTI and lethargy. patient more alert today and is answering questions. She denied any pain or any concerns. remains afebrile. her daughter and law at the bedside. Objective Vitals Vital Signs Date Time Temp Pulse Resp B/P Pulse Ox O2 Delivery O2 Flow Rate FiO2 08/05/16 12:00 94.4 81 16 115/59 97 08/05/16 08:00 98.1 89 16 133/63 97 08/05/16 04:00 96.8 95 20 123/55 93 08/05/16 00:04 97.4 83 21 97/53 96 08/04/16 20:02 95 Nasal Cannula 2.00 08/04/16 20:00 97.0 81 19 80/48 94 08/04/16 17:52 95 Nasal Cannula 2.00 I/O 08/04/16 08/04/16 08/04/16 08/05/16 08/05/16 08/05/16 07:00 15:00 23:00 07:00 15:00 23:00 Intake Total 120 ml 310 ml 608 ml 1595 ml 949 ml Balance 120 ml 310 ml 608 ml 1595 ml 949 ml Intake Oral 120 ml 90 ml 60 ml 360 ml IV Total 310 ml 518 ml 1535 ml 589 ml # Voids 3 2 3 2 # Bowel Movements 1 0 0 0 Result Diagram: 08/05/16 0545 08/05/16544 Objective Remarks GENERAL: in NAD CARDIOVASCULAR: Regular rate and rhythm without murmurs, gallops, or rubs. RESPIRATORY: Breath sounds equal bilaterally. No accessory muscle use. GASTROINTESTINAL: Abdomen soft, + TTP in lower abdominal area, and CVA tenderness B/L. no peritoneal signs. MUSCULOSKELETAL: No cyanosis, or edema. BACK: No CVA tenderness. Medications and IVs Current Medications Acetaminophen 650 mg 650 mg ONCE ONCE PO Last administered on 08/02/16 23:43; Start 08/02/16 at 23:15; Stop 08/02/16 at 23:22; Status DC Cefepime HCl 2000 mg/Sodium Chloride 100 ml @ 200 mls/hr ONCE STAT IV Last administered on 08/02/16 23:43; Start 08/02/16 at 23:01; Stop 08/02/16 at 23:30; Status DC Sodium Chloride (NS 1000 ml Inj) 1,000 ml @ 1,000 mls/hr Q1H ONCE IV Last administered on 08/02/16 23:43; Start 08/02/16 at 23:01; Stop 08/03/16 at 00:00; Status DC Acetaminophen (Tylenol) 650 mg Q4H PRN PO FEVER Last administered on 08/04/16 17:39; Start 08/03/16 at 02:00 Ondansetron HCl 4 mg 4 mg Q8H PRN IV PUSH NAUSEA; Start 08/03/16 at 02:00 Ceftriaxone Sodium/Sodium Chloride (Rocephin Inj/NS Inj) 100 ml @ 200 mls/hr Q24H IV Last administered on 08/04/16 04:42; Start 08/03/16 at 06:00; Stop at 09:26; Status DC Aspirin (Aspirin Chew) 81 mg DAILY CHEW Last administered on 08/05/16 08:32; Start 08/03/16 at 09:00 Brimonidine Tartrate (Alphagan 0.2% Opth Soln) 1 drop TID EACH EYE Last administered on 08/05/16 12:41; Start 08/03/16 at 09:00 Latanoprost (Xalatan 0.005% Opth Soln) 1 drop HS EACH EYE Last administered on 08/04/16 20:29; Start 08/03/16 at 21:00 Sertraline HCl (Zoloft) 100 mg DAILY PO Last administered on 08/05/16 08:33; Start 08/03/16 at 09:00 Timolol Maleate (Timoptic 0.5% Opth Soln) 1 drop BID EACH EYE Last administered on 08/05/16 08:32; Start 08/03/16 at 09:00 Budesonide/ Formoterol Fumarate (Symbicort 80-4.5 Mcg Inh) 2 puff BID INH Last administered on 08/05/16 08:32; Start 08/03/16 at 09:00 Pantoprazole Sodium (Protonix) 20 mg DAILY PRN PO SEE LABEL COMMENTS Last administered on 08/05/16 08:31; Start 08/03/16 at 03:15 Albuterol Sulfate 1.25 mg 1.25 mg Q4HR NEB PRN NEB SHORTNESS OF BREATH; Start 08/03/16 at 03:00 Sodium Chloride 250 ml @ 250 mls/hr BOLUS ONCE IV Last administered on 04:45; Start 08/03/16 at 04:45; Stop 08/03/16 at 05:44; Status DC Sodium Chloride 1,000 ml @ 75 mls/hr [id number] IV Last administered on 08/05/16 12:41; Start 08/04/16 at 09:30 Cefepime HCl/ Sodium Chloride (Maxipime Inj/NS Inj) 100 ml @ 200 mls/hr Q12H IV Last administered on 08/05/16 08:31; Start 08/04/16 at 10:00 Morphine Sulfate (Morphine Inj) 1 mg Q6H PRN IV PUSH pain 1-10; Start 08/04/16 at 17:45; Stop 08/04/16 at 17:52; Status DC Morphine Sulfate (Morphine Inj) 0.25 mg Q6H PRN IV PUSH pain 1-10; Start at 23:45 Acetaminophen/ Hydrocodone Bitart ([place] 5-325 Mg) 1 tab Q6H PRN PO pain 1-6 Last administered on 08/05/16 13:53; Start 08/04/16 at 18:00 Acetaminophen/ Hydrocodone Bitart 1 tab 1 tab Q6H PRN PO pain 7-10; Start at 18:00 Sodium Chloride (NS 1000 ml Inj) 1,000 ml @ 999 mls/hr BOLUS ONCE IV Last administered on 08/04/16 22:30; Start 08/04/16 at 22:30; Stop 08/04/16 at 23:30; Status DC Potassium Chloride (KCl) 30 meq ONCE ONCE PO Last administered on 08/05/16 12: 41; Start 08/05/16 at 10:15; Stop 08/05/16 at 10:16; Status DC A/P Problem List: (1) Sepsis ICD Code: A41.9 Status: Acute (2) UTI (urinary tract infection) ICD Code: N39.0 Status: Acute Assessment and Plan Sepsis -Patient had leukocytosis, tachycardia, and fever. UA suggest UTI. -Patient given a dose of cefepime in the ED and was changed to Rocephin. -Since patient is more lethargic on 08/04 and leukocytosis decrease minimally she was change back to cefepime for pseudomonas coverage. -urine cultures grew Ecoli and pansensitive. -patient clinically doing better today and WBC improving. -will get renal US r/o Pyelo since UTI, leukocytosis and now CVA tenderness and continue to current management. UTI, Ecoli -on cefepime. see treatment as above. COPD with no exacerbation -continue advair- neb treatment as needed Dementia -worsen due to illness but today improving. glaucoma -Continue with home medication. -DVT prophylaxis with SCD's DNR status Discharge Planning Today patient is improving clinically. Patient granddaughter who is a HEALTHCARE SALES REPRESENTATIVE at a [employer] spoke to me over the phone and was upset about patient's diaper having urine in it. She demand that I put a henry in patient. I told patient there are no indication for a henry placement at the moment and I cannot put a henry in because she does not want urine in the diaper. I told her we try to avoid henry use because it increase her risk of having infection for it. She was upset with this. I told grand daughter that I addressed all her concerns yesterday to the staff and that if she continues to have the same problem to talk to the charge nurse or patient advocacy, which she was given the name. Problem Qualifiers (1) Sepsis: Qualified Code: A41.9 - Sepsis, due to unspecified organism (2) UTI (urinary tract infection): Qualified Code: N30.00 - Acute cystitis without hematuria Shagufta Davenport MD Aug 05, 2016 16:35
[2016-08-05 20:00] VITALS: BP 107/58; PULSE 83; RESP 18; TEMP 97.7; O2SAT 95
[2016-08-05] MEDS: LATANOPROST 0.005% OPHT SOLN 2.5 ML BTL EACH EYE SCH (20:19)
--- NOTE | 2016-08-05 21:32 | RADRPT ---
EXAM DATE/TIME: 08/05/2016 18:53 [facility] COMPARISON: No previous studies available for comparison. INDICATIONS : Flank pain. MEDICAL HISTORY : Chronic obstructive pulmonary disease. Dementia. Current urinary tract infection. Sepsis. Glaucoma. Hearing loss. Gall bladder disease. Osteoporosis. 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 Chemotherapy. Radiation ther apy. SURGICAL HISTORY : section. Detached retina repair. ENCOUNTER: Initial ACUITY: 3 days PAIN SCORE: 0/10 LOCATION: Bilateral flank MEASUREMENTS: RIGHT KIDNEY: 10.0 x 4.3 x 3.9 cm LEFT KIDNEY: 9.9 x 5.6 x 4.8 cm FINDINGS: RIGHT KIDNEY: Renal cortex is normal in thickness and echotexture. No hydronephrosis, stone, or mass. There is a trace of perinephric fluid. LEFT KIDNEY: Renal cortex is normal in thickness and echotexture. No hydronephrosis, stone, or mass. BLADDER: Within normal limits given the degree of distension. CONCLUSION: 1. No evidence of hydronephrosis. 2. Trace of right perinephric fluid. Nolberto Walton MD on August 05, 2016 at 21:29 Board Certified Radiologist. This report was verified electronically.
[2016-08-06] VITALS: BP 129/61; PULSE 92; RESP 20; TEMP 96.7; O2SAT 95
[2016-08-06] MEDS: SODIUM CHLOR 0.9% 1000 ML INJ 1,000 ML IV SCH ×2 (03:16→07:06)
[2016-08-06 06:06] LABS: BICARBONATE 22.9 MEQ/L (21.0-32.0); POTASSIUM 3.6 MEQ/L (3.5-5.1)
[2016-08-06 06:35] LABS: HEMATOCRIT 29.9 % (35.0-46.0); MEAN CELL VOLUME 69.8 FL (80.0-100.0); MEAN CORPUSCULAR HEMOGLOBIN 21.3 PG (27.0-34.0); MEAN CORPUSCULAR HGB CONC 30.5 % (32.0-36.0); PLATELET COUNT 232 TH/MM3 (150-450); RED BLOOD COUNT 4.28 MIL/MM3 (4.00-5.30); RED CELL DISTRIBUTION WIDTH 18.4 % (11.6-17.2); WHITE BLOOD COUNT 21.3 TH/MM3 (4.0-11.0)
[2016-08-06 06:42] LABS: REVIEW FLAG FINAL
[2016-08-06] MEDS: ACETAMINOPHEN/HYDROcodone 325 MG/5 MG TAB PO PRN ×2 (07:04→17:56)
[2016-08-06 08:00] VITALS: BP 145/82; PULSE 86; RESP 16; TEMP 96.5; O2SAT 98
[2016-08-06] MEDS ORDERED: VANCOMYCIN INJ 1,000 MG in SODIUM CHLOR 0.9% 250 ML INJ 250 ML IV ONE (08:15)
[2016-08-06] MEDS ORDERED: Vancomycin Consult Pharmacy 1 EA OTHER SCH (08:15)
[2016-08-06] MEDS: ASPIRIN 81 MG CHEW TAB CHEW SCH (08:20)
[2016-08-06] MEDS: SERTRALINE HCL 100 MG TAB PO SCH (08:20)
[2016-08-06] MEDS: TIMOLOL MALEATE 0.5% OPHT SOLN 5 ML BTL EACH EYE SCH ×2 (08:20→19:43)
[2016-08-06] MEDS: BUDESONIDE-FORMOTEROL 80/4.5 MCG INHALER INH SCH ×2 (08:20→19:43)
[2016-08-06] MEDS: BRIMONIDINE TARTRATE 0.2% OPHT SOLN 5 ML BTL EACH EYE SCH ×3 (08:20→18:00)
--- NOTE | 2016-08-06 08:38 | HHI.PR ---
Subjective Remarks f/u for UTI and lethargy patient stated she feels better today. she is able to tell me her name. She seems more to be at her baseline. She stated pain is better. Denied any N/V. Patient's nurse is at the bedside. Objective Vitals Vital Signs Date Time Temp Pulse Resp B/P Pulse Ox O2 Delivery O2 Flow Rate FiO2 08/06/16 00:00 96.7 92 20 129/61 95 08/05/16 20:16 95 Nasal Cannula 2.00 08/05/16 20:00 97.7 83 18 107/58 95 08/05/16 16:00 96.9 57 19 193/93 93 08/05/16 16:00 98.6 86 16 105/51 95 08/05/16 12:00 94.4 81 16 115/59 97 I/O 08/05/16 08/05/16 08/05/16 08/06/16 08/06/16 08/06/16 07:00 15:00 23:00 07:00 15:00 23:00 Intake Total 1595 ml 1069 ml 1066 ml 496 ml Balance 1595 ml 1069 ml 1066 ml 496 ml Intake Oral 60 ml 480 ml 120 ml 0 ml IV Total 1535 ml 589 ml 946 ml 496 ml # Voids 3 5 2 1 # Bowel Movements 0 0 0 0 Result Diagram: 08/06/16 0508/06/16 0519 Imaging Last Impressions Renal Ultrasound 08/05/16 0000 Signed Impressions: Service Date/Time: Friday, August 05, 2016 18:53 - CONCLUSION: 1. No evidence of hydronephrosis. 2. Trace of right perinephric fluid. Nolberto Walton MD Abdomen/Pelvis CT 08/03/16 0000 Signed Impressions: Service Date/Time: July 00:54 - CONCLUSION: 1. No acute abnormality to explain the patient's pain. 2. 1.6 x 1.4 cm nodule involving the right lung base. A short-term followup CT of the thorax in 3-6 months is suggested. At this point a malignancy cannot be excluded. 3. 2.6 cm cystic structure within the right adnexa which is likely ovarian in nature. It can be further assessed with a short-term followup pelvic ultrasound if clinically warranted. 4. Colonic diverticulosis. Jaden Hendrix Jr., MD Head CT 08/02/162300 Signed Impressions: Service Date/Time: July 00:50 - CONCLUSION: No acute disease. Jaden Hendrix Jr., MD Chest X-Ray 08/02/162300 Signed Impressions: Service Date/Time: Tuesday, August 02, 2016 23:38 - CONCLUSION: No acute disease. Jaden Hendrix Jr., MD Objective Remarks GENERAL: in NAD CARDIOVASCULAR: Regular rate and rhythm without murmurs, gallops, or rubs. RESPIRATORY: Breath sounds equal bilaterally. No accessory muscle use. GASTROINTESTINAL: Abdomen soft, + TTP in lower abdominal area that has improved , and CVA tenderness B/L. no peritoneal signs. MUSCULOSKELETAL: No cyanosis, or edema. + TTP of LE. she seems to be sensitive to touch. BACK: No CVA tenderness. SKIN: right leg with wound due to skin tear. Dry clean and intact. pinkish coloration of right lower ext. Medications and IVs Current Medications Acetaminophen 650 mg 650 mg ONCE ONCE PO Last administered on 08/02/16 23:43; Start 08/02/16 at 23:15; Stop 08/02/16 at 23:22; Status DC Cefepime HCl 2000 mg/Sodium Chloride 100 ml @ 200 mls/hr ONCE STAT IV Last administered on 08/02/16 23:43; Start 08/02/16 at 23:01; Stop 08/02/16 at 23:30; Status DC Sodium Chloride (NS 1000 ml Inj) 1,000 ml @ 1,000 mls/hr Q1H ONCE IV Last administered on 08/02/16 23:43; Start 08/02/16 at 23:01; Stop 08/03/16 at 00:00; Status DC Acetaminophen (Tylenol) 650 mg Q4H PRN PO FEVER Last administered on 08/04/16 17:39; Start 08/03/16 at 02:00 Ondansetron HCl 4 mg 4 mg Q8H PRN IV PUSH NAUSEA; Start 08/03/16 at 02:00 Ceftriaxone Sodium/Sodium Chloride (Rocephin Inj/NS Inj) 100 ml @ 200 mls/hr Q24H IV Last administered on 08/04/16 04:42; Start 08/03/16 at 06:00; Stop at 09:26; Status DC Aspirin (Aspirin Chew) 81 mg DAILY CHEW Last administered on 08/05/16 08:32; Start 08/03/16 at 09:00 Brimonidine Tartrate (Alphagan 0.2% Opt Soln) 1 drop TID EACH EYE Last administered on 08/05/16 17:08; Start 08/03/16 at 09:00 Latanoprost (Xalatan 0.005% Opth Soln) 1 drop HS EACH EYE Last administered on 08/05/16 20:19; Start 08/03/16 at 21:00 Sertraline HCl (Zoloft) 100 mg DAILY PO Last administered on 08/05/16 08:33; Start 08/03/16 at 09:00 Timolol Maleate (Timoptic 0.5% Opt Soln) 1 drop BID EACH EYE Last administered on 08/05/16 20:19; Start 08/03/16 at 09:00 Budesonide/ Formoterol Fumarate (Symbicort 80-4.5 Mcg Inh) 2 puff BID INH Last administered on 08/05/16 20:19; Start 08/03/16 at 09:00 Pantoprazole Sodium (Protonix) 20 mg DAILY PRN PO SEE LABEL COMMENTS Last administered on 08/05/16 08:31; Start 08/03/16 at 03:15 Albuterol Sulfate 1.25 mg 1.25 mg Q4HR NEB PRN NEB SHORTNESS OF BREATH; Start 08/03/16 at 03:00 Sodium Chloride 250 ml @ 250 mls/hr BOLUS ONCE IV Last administered on 04:45; Start 08/03/16 at 04:45; Stop 08/03/16 at 05:44; Status DC Sodium Chloride 1,000 ml @ 50 mls/hr Q20H IV Last administered on 08/06/16 07: 06; Start 08/04/16 at 09:30 Cefepime HCl/ Sodium Chloride (Maxipime Inj/NS Inj) 100 ml @ 200 mls/hr Q12H IV Last administered on 08/05/16 20:19; Start 08/04/16 at 10:00 Morphine Sulfate (Morphine Inj) 1 mg Q6H PRN IV PUSH pain 1-10; Start 08/04/16 at 17:45; Stop 08/04/16 at 17:52; Status DC Morphine Sulfate (Morphine Inj) 0.25 mg Q6H PRN IV PUSH pain 1-10; Start at 23:45 Acetaminophen/ Hydrocodone Bitart ([place] 5-325 Mg) 1 tab Q6H PRN PO pain 1-6 Last administered on 08/06/16 07:04; Start 08/04/16 at 18:00 Acetaminophen/ Hydrocodone Bitart 1 tab 1 tab Q6H PRN PO pain 7-10; Start at 18:00 Sodium Chloride (NS 1000 ml Inj) 1,000 ml @ 999 mls/hr BOLUS ONCE IV Last administered on 08/04/16 22:30; Start 08/04/16 at 22:30; Stop 08/04/16 at 23:30; Status DC Potassium Chloride 30 meq 30 meq ONCE ONCE PO Last administered on 08/05/16 12 :41; Start 08/05/16 at 10:15; Stop 08/05/16 at 10:16; Status DC Vancomycin HCl 1000 mg/Sodium Chloride 250 ml @ 250 mls/hr ONCE ONCE IV ; Start 08/06/16 at 08:15; Stop 08/06/16 at 09:14; Status UNV Pharmacy Profile Note (Vancomycin Consult Pharmacy) 0 ml @ 0 mls/hr UNSCH OTHER ; Start 08/06/16 at 08:15 A/P Problem List: (1) Sepsis ICD Code: A41.9 Status: Acute (2) UTI (urinary tract infection) ICD Code: N39.0 Status: Acute Assessment and Plan Sepsis -Patient had leukocytosis, tachycardia, and fever. UA suggest UTI. -Patient given a dose of cefepime in the ED and was changed to Rocephin. -Since patient is more lethargic on 08/04 and leukocytosis decrease minimally she was change back to cefepime for pseudomonas coverage. -urine cultures grew Ecoli and pansensitive. -patient clinically doing better today but WBC worsen today. -renal us reviewed and not impressive. -other source of infection most likely the cellulitis. Right LE cellulitis -patient on cefepime. -since WBC increasing will add vancomycin for MRSA coverage. -will have pharmacy manage. -wound care consult for skin tear. UTI, Ecoli -on cefepime. see treatment as above. COPD with no exacerbation -continue advair - neb treatment as needed Dementia -IMPROVING and almost back to baseline. glaucoma -Continue with home medication. -DVT prophylaxis with SCD's DNR status patient nurse at bedside during interview and examination. Discharge Planning Continues to require IV antibiotics. pending PT evaluation and Hospice consult. Problem Qualifiers (1) Sepsis: Qualified Code: A41.9 - Sepsis, due to unspecified organism (2) UTI (urinary tract infection): Qualified Code: N30.00 - Acute cystitis without hematuria Shagufta Davenport MD Aug 06, 2016 08:38
[2016-08-06] MEDS: CEFEPIME INJ 1,000 MG in SODIUM CHLORIDE 0.9% INJ 100 ML IV SCH ×2 (09:37→22:51)
[2016-08-06] MEDS: VANCOMYCIN 1,000 MG/NS 250 ML IV SCH ×2 (10:19)
[2016-08-06 12:00] VITALS: BP 130/62; PULSE 76; RESP 16; TEMP 96; O2SAT 94
[2016-08-06 16:00] VITALS: BP 128/58; PULSE 82; RESP 16; TEMP 96.4; O2SAT 91
[2016-08-06] MEDS: LATANOPROST 0.005% OPHT SOLN 2.5 ML BTL EACH EYE SCH (19:43)
[2016-08-06 20:00] VITALS: BP 108/56; PULSE 86; RESP 19; TEMP 96; O2SAT 91
[2016-08-07] VITALS: BP 109/52; PULSE 81; RESP 19; TEMP 96; O2SAT 92
[2016-08-07 04:00] VITALS: O2SAT 93
[2016-08-07 05:28] LABS: MEAN CELL VOLUME 69.2 FL (80.0-100.0); MEAN CORPUSCULAR HEMOGLOBIN 21.2 PG (27.0-34.0); MEAN CORPUSCULAR HGB CONC 30.6 % (32.0-36.0); PLATELET COUNT 272 TH/MM3 (150-450); RED BLOOD COUNT 3.62 MIL/MM3 (4.00-5.30); RED CELL DISTRIBUTION WIDTH 18.5 % (11.6-17.2); WHITE BLOOD COUNT 12.9 TH/MM3 (4.0-11.0)
[2016-08-07 05:33] LABS: REVIEW FLAG FINAL
[2016-08-07 06:04] LABS: BICARBONATE 22.6 MEQ/L (21.0-32.0); POTASSIUM 3.2 MEQ/L (3.5-5.1)
[2016-08-07] MEDS: ACETAMINOPHEN/HYDROcodone 325 MG/5 MG TAB PO PRN (06:35)
[2016-08-07] MEDS: BUDESONIDE-FORMOTEROL 80/4.5 MCG INHALER INH SCH (07:48)
[2016-08-07] MEDS: ASPIRIN 81 MG CHEW TAB CHEW SCH (07:48)
[2016-08-07] MEDS: SERTRALINE HCL 100 MG TAB PO SCH (07:48)
[2016-08-07] MEDS: BRIMONIDINE TARTRATE 0.2% OPHT SOLN 5 ML BTL EACH EYE SCH ×3 (07:49→17:35)
[2016-08-07] MEDS: TIMOLOL MALEATE 0.5% OPHT SOLN 5 ML BTL EACH EYE SCH (07:50)
[2016-08-07 08:00] VITALS: BP 121/57; PULSE 82; RESP 18; TEMP 96.2; O2SAT 93
[2016-08-07] MEDS ORDERED: POTASSIUM CHLORIDE 10 MEQ CONTROLLED RELEASE TAB PO ONE (09:00)
--- NOTE | 2016-08-07 09:00 | HHI.PR ---
Subjective Remarks f/u for infection and pain. Patient continues to be AAO X 1 which is her baseline. She denied any pain. decrease PO intake due to dementia. Per her nurse no other issue but that patient has decrease appetite. she remains afebrile. Objective Vitals Vital Signs Date Time Temp Pulse Resp B/P Pulse Ox O2 Delivery O2 Flow Rate FiO2 08/07/16 08:00 96.2 82 18 121/57 93 08/07/16 04:00 93 08/07/16 00:00 96.0 81 19 109/52 92 08/06/16 20:00 96.0 86 19 108/56 91 08/06/16 19:41 91 Nasal Cannula 2.00 08/06/16 18:56 18 08/06/16 16:00 96.4 82 16 128/58 91 08/06/16 12:00 96.0 76 16 130/62 94 I/O 08/06/16 08/06/16 08/06/16 08/07/16 08/07/16 08/07/16 07:00 15:00 23:00 07:00 15:00 23:00 Intake Total 496 ml 953 ml 330 ml 453 ml Balance 496 ml 953 ml 330 ml 453 ml Intake Oral 0 ml 100 ml 30 ml 60 ml IV Total 496 ml 853 ml 300 ml 393 ml # Voids 1 3 1 2 # Bowel Movements 0 0 0 0 Result Diagram: 08/07/1642008/07/16420 Objective Remarks GENERAL: in NAD CARDIOVASCULAR: Regular rate and rhythm without murmurs, gallops, or rubs. RESPIRATORY: Breath sounds equal bilaterally. No accessory muscle use. GASTROINTESTINAL: Abdomen soft, no TTP of lower abdominal area. no CVA tenderness no peritoneal signs. MUSCULOSKELETAL: No cyanosis, or edema. + TTP of LE. she seems to be sensitive to touch. BACK: No CVA tenderness. SKIN: right leg with wound due to skin tear. Dry clean and intact. pinkish coloration of right lower ext that has improved. Medications and IVs Current Medications Acetaminophen 650 mg 650 mg ONCE ONCE PO Last administered on 08/02/16t 23:43; Start 08/02/16 at 23:15; Stop 08/02/16 at 23:22; Status DC Cefepime HCl 2000 mg/Sodium Chloride 100 ml @ 200 mls/hr ONCE STAT IV Last administered on 08/02/16 23:43; Start 08/02/16 at 23:01; Stop 08/02/16 at 23:30; Status DC Sodium Chloride (NS 1000 ml Inj) 1,000 ml @ 1,000 mls/hr Q1H ONCE IV Last administered on 08/02/16 23:43; Start 08/02/16 at 23:01; Stop 08/03/16 at 00:00; Status DC Acetaminophen (Tylenol) 650 mg Q4H PRN PO FEVER Last administered on 08/04/16 17:39; Start 08/03/16 at 02:00 Ondansetron HCl 4 mg 4 mg Q8H PRN IV PUSH NAUSEA; Start 08/03/16 at 02:00 Ceftriaxone Sodium/Sodium Chloride (Rocephin Inj/NS Inj) 100 ml @ 200 mls/hr Q24H IV Last administered on 08/04/16 04:42; Start 08/03/16 at 06:00; Stop at 09:26; Status DC Aspirin (Aspirin Chew) 81 mg DAILY CHEW Last administered on 08/07/16 07:48; Start 08/03/16 at 09:00 Brimonidine Tartrate (Alphagan 0.2% Opth Soln) 1 drop TID EACH EYE Last administered on 08/07/16 07:49; Start 08/03/16 at 09:00 Latanoprost (Xalatan 0.005% Opth Soln) 1 drop HS EACH EYE Last administered on 08/06/16 19:43; Start 08/03/16 at 21:00 Sertraline HCl (Zoloft) 100 mg DAILY PO Last administered on 08/07/16 07:48; Start 08/03/16 at 09:00 Timolol Maleate (Timoptic 0.5% Opth Soln) 1 drop BID EACH EYE Last administered on 08/07/16 07:50; Start 08/03/16 at 09:00 Budesonide/ Formoterol Fumarate (Symbicort 80-4.5 Mcg Inh) 2 puff BID INH Last administered on 08/07/16 07:48; Start 08/03/16 at 09:00 Pantoprazole Sodium (Protonix) 20 mg DAILY PRN PO SEE LABEL COMMENTS Last administered on 08/05/16 08:31; Start 08/03/16 at 03:15 Albuterol Sulfate 1.25 mg 1.25 mg Q4HR NEB PRN NEB SHORTNESS OF BREATH; Start 08/03/16 at 03:00 Sodium Chloride 250 ml @ 250 mls/hr BOLUS ONCE IV Last administered on 04:45; Start 08/03/16 at 04:45; Stop 08/03/16 at 05:44; Status DC Sodium Chloride 1,000 ml @ 50 mls/hr Q20H IV Last administered on 08/06/16 07: 06; Start 08/04/16 at 09:30 Cefepime HCl/ Sodium Chloride (Maxipime Inj/NS Inj) 100 ml @ 200 mls/hr Q12H IV Last administered on 08/06/16 22:51; Start 08/04/16 at 10:00 Morphine Sulfate (Morphine Inj) 1 mg Q6H PRN IV PUSH pain 1-10; Start 08/04/16 at 17:45; Stop 08/04/16 at 17:52; Status DC Morphine Sulfate (Morphine Inj) 0.25 mg Q6H PRN IV PUSH pain 1-10; Start at 23:45 Acetaminophen/ Hydrocodone Bitart ([place] 5-325 Mg) 1 tab Q6H PRN PO pain 1-6 Last administered on 08/07/16 06:35; Start 08/04/16 at 18:00 Acetaminophen/ Hydrocodone Bitart 1 tab 1 tab Q6H PRN PO pain 7-10; Start at 18:00 Sodium Chloride (NS 1000 ml Inj) 1,000 ml @ 999 mls/hr BOLUS ONCE IV Last administered on 08/04/16 22:30; Start 08/04/16 at 22:30; Stop 08/04/16 at 23:30; Status DC Potassium Chloride 30 meq 30 meq ONCE ONCE PO Last administered on 08/05/16 12 :41; Start 08/05/16 at 10:15; Stop 08/05/16 at 10:16; Status DC Vancomycin HCl 1000 mg/Sodium Chloride 250 ml @ 250 mls/hr ONCE ONCE IV ; Start 08/06/16 at 08:15; Stop 08/06/16 at 09:14; Status UNV Pharmacy Profile Note 0 ml @ 0 mls/hr UNSCH OTHER ; Start 08/06/16 at 08:15 Vancomycin HCl/ Sodium Chloride (Vancomycin Inj/ NS 250 ml Inj) 250 ml @ 250 mls/hr Q24H IV Last administered on 08/06/16 10:19; Start 08/06/16 at 10:00 Miscellaneous Information SPECIFIC LAB TO BE KASSANDRA... ONCE ONCE .XX ; Start 08/09 at 09:45; Stop 08/09/16 at 09:46 Potassium Chloride (KCl) 30 meq ONCE ONCE PO Last administered on 08/07/16 08 :42; Start 08/07/16 at 09:00; Stop 08/07/16 at 09:01 A/P Problem List: (1) Sepsis ICD Code: A41.9 Status: Acute (2) UTI (urinary tract infection) ICD Code: N39.0 Status: Acute Assessment and Plan Sepsis -Patient had leukocytosis, tachycardia, and fever. UA suggest UTI. -Patient given a dose of cefepime in the ED and was changed to Rocephin. -Since patient is more lethargic on 08/04 and leukocytosis decrease minimally she was change back to cefepime for pseudomonas coverage. -urine cultures grew Ecoli and pansensitive. -renal us reviewed and not impressive. -leukocytosis was most likely due to cellulitis in which it improved drastically with treatment. Right LE cellulitis -patient on cefepime. -since WBC increasing will add vancomycin for MRSA coverage. -Leukocytosis and cellulitis improved with treatment. will continue with vancomycin for 1 more day. -wound care consulted for skin tear. UTI, Ecoli -on cefepime. see treatment as above. COPD with no exacerbation -continue advair - neb treatment as needed Dementia -IMPROVING and back to baseline. glaucoma -Continue with home medication. -DVT prophylaxis with SCD's DNR status patient nurse at bedside during interview and examination. Discharge Planning Hospice consulted per Lalito the son wants patient to go to SNF. Will give 1 more day of IV antibiotics since she responded well and if continues to improve d/c tomorrow to SNF Problem Qualifiers (1) Sepsis: Qualified Code: A41.9 - Sepsis, due to unspecified organism (2) UTI (urinary tract infection): Qualified Code: N30.00 - Acute cystitis without hematuria Shagufta Davenport MD Aug 07, 2016 09:00
[2016-08-07] MEDS: CEFEPIME INJ 1,000 MG in SODIUM CHLORIDE 0.9% INJ 100 ML IV SCH (09:56)
[2016-08-07 10:47] LABS: BICARBONATE 23.2 MEQ/L (21.0-32.0); POTASSIUM 3.7 MEQ/L (3.5-5.1)
[2016-08-07] MEDS: SODIUM CHLOR 0.9% 1000 ML INJ 1,000 ML IV SCH (10:50)
[2016-08-07] MEDS: VANCOMYCIN 1,000 MG/NS 250 ML IV SCH ×2 (10:54)
[2016-08-07 12:00] VITALS: BP 133/62; PULSE 83; RESP 17; TEMP 96.7; O2SAT 96
[2016-08-07 16:00] VITALS: BP 146/68; PULSE 86; RESP 16; TEMP 97.7; O2SAT 95
[2016-08-07 20:00] VITALS: BP 150/68; PULSE 90; RESP 20; TEMP 97.7; O2SAT 94
[2016-08-08] VITALS: BP 187/81; PULSE 88; RESP 20; TEMP 97.1; O2SAT 95
[2016-08-08] MEDS: CEFEPIME INJ 1,000 MG in SODIUM CHLORIDE 0.9% INJ 100 ML IV SCH ×2 (00:11→10:09)
[2016-08-08] MEDS: ACETAMINOPHEN/HYDROcodone 325 MG/7.5 MG TAB PO PRN ×3 (00:12→17:05)
[2016-08-08] MEDS: TIMOLOL MALEATE 0.5% OPHT SOLN 5 ML BTL EACH EYE SCH ×3 (00:13→20:07)
[2016-08-08] MEDS: BUDESONIDE-FORMOTEROL 80/4.5 MCG INHALER INH SCH ×3 (00:14→20:17)
[2016-08-08] MEDS: LATANOPROST 0.005% OPHT SOLN 2.5 ML BTL EACH EYE SCH ×2 (00:14→20:07)
[2016-08-08] MEDS: SODIUM CHLOR 0.9% 1000 ML INJ 1,000 ML IV SCH (00:15)
[2016-08-08 04:00] VITALS: BP 135/59; PULSE 75; RESP 20; TEMP 97.6; O2SAT 93
[2016-08-08 08:00] VITALS: BP 120/71; PULSE 86; RESP 17; TEMP 98.2; O2SAT 96
[2016-08-08] MEDS: SERTRALINE HCL 100 MG TAB PO SCH (08:04)
[2016-08-08] MEDS: ASPIRIN 81 MG CHEW TAB CHEW SCH (08:04)
[2016-08-08] MEDS: BRIMONIDINE TARTRATE 0.2% OPHT SOLN 5 ML BTL EACH EYE SCH ×3 (08:08→17:07)
[2016-08-08] MEDS ORDERED: DOXY8SUS PO (08:57)
[2016-08-08] MEDS ORDERED: HYDR-3516 PO (08:57)
[2016-08-08] MEDS: VANCOMYCIN 1,000 MG/NS 250 ML IV SCH ×2 (11:20)
[2016-08-08 11:37] LABS: HEMATOCRIT 25.1 % (35.0-46.0); MEAN CELL VOLUME 69.3 FL (80.0-100.0); MEAN CORPUSCULAR HEMOGLOBIN 21.2 PG (27.0-34.0); MEAN CORPUSCULAR HGB CONC 30.6 % (32.0-36.0); PLATELET COUNT 293 TH/MM3 (150-450); RED BLOOD COUNT 3.61 MIL/MM3 (4.00-5.30); RED CELL DISTRIBUTION WIDTH 18.3 % (11.6-17.2); WHITE BLOOD COUNT 15.9 TH/MM3 (4.0-11.0)
[2016-08-08 11:38] LABS: REVIEW FLAG FINAL
[2016-08-08 12:00] VITALS: BP 121/63; PULSE 75; RESP 18; TEMP 97.1; O2SAT 95
--- NOTE | 2016-08-08 13:13 | HHI.PR ---
Subjective Remarks Follow-up for cellulitis and UTI. Patient has no complaints she has she stated that she felt good. Denied any nausea or vomiting or abdominal pain. She denies any pain. She remains afebrile. She is back to her baseline. Objective Vitals Vital Signs Date Time Temp Pulse Resp B/P Pulse Ox O2 Delivery O2 Flow Rate FiO2 08/08/16 12:00 97.1 75 18 121/63 95 08/08/16 09:04 18 08/08/16 08:20 Nasal Cannula 2.00 08/08/16 08:00 98.2 86 17 120/71 96 08/08/16 04:00 97.6 75 20 135/59 93 08/08/16 00:00 97.1 88 20 187/81 95 08/07/16 20:00 97.7 90 20 150/68 94 08/07/16 16:00 97.7 86 16 146/68 95 I/O 08/07/16 08/07/16 08/07/16 08/08/16 08/08/16 08/08/16 07:00 15:00 23:00 07:00 15:00 23:00 Intake Total 453 ml 921 ml 620 ml 60 ml Balance 453 ml 921 ml 620 ml 60 ml Intake Oral 60 ml 195 ml 120 ml 60 ml IV Total 393 ml 726 ml 500 ml # Voids 2 3 1 3 # Bowel Movements 0 0 0 0 Result Diagram: 08/08/16 1116 08/07/16 1017 Objective Remarks GENERAL: in NAD CARDIOVASCULAR: Regular rate and rhythm without murmurs, gallops, or rubs. RESPIRATORY: Breath sounds equal bilaterally. No accessory muscle use. GASTROINTESTINAL: Abdomen soft, no TTP of lower abdominal area. no CVA tenderness no peritoneal signs. MUSCULOSKELETAL: No cyanosis, or edema. she seems to be sensitive to touch. BACK: No CVA tenderness. SKIN: right leg with wound due to skin tear. Dry clean and intact. pinkish coloration of right lower ext that has improved and almost resolved. Procedures Current Medications Acetaminophen 650 mg 650 mg ONCE ONCE PO Last administered on 08/02/16t 23:43; Start 08/02/16 at 23:15; Stop 08/02/16 at 23:22; Status DC Cefepime HCl 2000 mg/Sodium Chloride 100 ml @ 200 mls/hr ONCE STAT IV Last administered on 08/02/16 23:43; Start 08/02/16 at 23:01; Stop 08/02/16 at 23:30; Status DC Sodium Chloride (NS 1000 ml Inj) 1,000 ml @ 1,000 mls/hr Q1H ONCE IV Last administered on 08/02/16 23:43; Start 08/02/16 at 23:01; Stop 08/03/16 at 00:00; Status DC Acetaminophen (Tylenol) 650 mg Q4H PRN PO FEVER Last administered on 08/04/16 17:39; Start 08/03/16 at 02:00 Ondansetron HCl 4 mg 4 mg Q8H PRN IV PUSH NAUSEA; Start 08/03/16 at 02:00 Ceftriaxone Sodium/Sodium Chloride (Rocephin Inj/NS Inj) 100 ml @ 200 mls/hr Q24H IV Last administered on 08/04/16 04:42; Start 08/03/16 at 06:00; Stop at 09:26; Status DC Aspirin (Aspirin Chew) 81 mg DAILY CHEW Last administered on 08/08/16 08:04; Start 08/03/16 at 09:00 Brimonidine Tartrate (Alphagan 0.2% Opth Soln) 1 drop TID EACH EYE Last administered on 08/08/16 08:08; Start 08/03/16 at 09:00 Latanoprost (Xalatan 0.005% Opth Soln) 1 drop HS EACH EYE Last administered on 08/08/16 00:14; Start 08/03/16 at 21:00 Sertraline HCl (Zoloft) 100 mg DAILY PO Last administered on 08/08/16 08:04; Start 08/03/16 at 09:00 Timolol Maleate (Timoptic 0.5% Opth Soln) 1 drop BID EACH EYE Last administered on 08/08/16 08:08; Start 08/03/16 at 09:00 Budesonide/ Formoterol Fumarate (Symbicort 80-4.5 Mcg Inh) 2 puff BID INH Last administered on 08/08/16 08:07; Start 08/03/16 at 09:00 Pantoprazole Sodium (Protonix) 20 mg DAILY PRN PO SEE LABEL COMMENTS Last administered on 08/05/16 08:31; Start 08/03/16 at 03:15 Albuterol Sulfate 1.25 mg 1.25 mg Q4HR NEB PRN NEB SHORTNESS OF BREATH; Start 08/03/16 at 03:00 Sodium Chloride 250 ml @ 250 mls/hr BOLUS ONCE IV Last administered on 04:45; Start 08/03/16 at 04:45; Stop 08/03/16 at 05:44; Status DC Sodium Chloride 1,000 ml @ 50 mls/hr Q20H IV Last administered on 08/08/16 00 :15; Start 08/04/16 at 09:30; Stop 08/08/16 at 07:38; Status DC Cefepime HCl/ Sodium Chloride (Maxipime Inj/NS Inj) 100 ml @ 200 mls/hr Q12H IV Last administered on 08/08/16 10:09; Start 08/04/16 at 10:00 Morphine Sulfate (Morphine Inj) 1 mg Q6H PRN IV PUSH pain 1-10; Start 08/04/16 at 17:45; Stop 08/04/16 at 17:52; Status DC Morphine Sulfate (Morphine Inj) 0.25 mg Q6H PRN IV PUSH pain 1-10; Start at 23:45 Acetaminophen/ Hydrocodone Bitart ([place] 5-325 Mg) 1 tab Q6H PRN PO pain 1-6 Last administered on 08/07/16 06:35; Start 08/04/16 at 18:00 Acetaminophen/ Hydrocodone Bitart 1 tab 1 tab Q6H PRN PO pain 7-10 Last administered on 08/08/16 08:04; Start 08/04/16 at 18:00 Sodium Chloride (NS 1000 ml Inj) 1,000 ml @ 999 mls/hr BOLUS ONCE IV Last administered on 08/04/16 22:30; Start 08/04/16 at 22:30; Stop 08/04/16 at 23:30; Status DC Potassium Chloride 30 meq 30 meq ONCE ONCE PO Last administered on 08/05/16 12 :41; Start 08/05/16 at 10:15; Stop 08/05/16 at 10:16; Status DC Vancomycin HCl 1000 mg/Sodium Chloride 250 ml @ 250 mls/hr ONCE ONCE IV ; Start 08/06/16 at 08:15; Stop 08/06/16 at 09:14; Status UNV Pharmacy Profile Note 0 ml @ 0 mls/hr UNSCH OTHER ; Start 08/06/16 at 08:15 Vancomycin HCl/ Sodium Chloride (Vancomycin Inj/ NS 250 ml Inj) 250 ml @ 250 mls/hr Q24H IV Last administered on 08/08/16 11:20; Start 08/06/16 at 10:00 Miscellaneous Information SPECIFIC LAB TO BE ... ONCE ONCE .XX ; Start 08/09 at 09:45; Stop 08/09/16 at 09:46 Potassium Chloride (KCl) 30 meq ONCE ONCE PO Last administered on 08/07/16 08 :42; Start 08/07/16 at 09:00; Stop 08/07/16 at 09:01; Status DC Iohexol (Omnipaque 350 Inj) 75 ml STK-MED ONCE IV Last administered on 00:54; Start 08/03/16 at 00:54; Stop 08/07/16 at 13:06; Status DC A/P Problem List: (1) Sepsis ICD Code: A41.9 Status: Acute (2) UTI (urinary tract infection) ICD Code: N39.0 Status: Acute Assessment and Plan Sepsis -Patient had leukocytosis, tachycardia, and fever. UA suggest UTI. -Patient given a dose of cefepime in the ED and was changed to Rocephin. -Since patient is more lethargic on 08/04 and leukocytosis decrease minimally she was change back to cefepime for pseudomonas coverage. -urine cultures grew Ecoli and pansensitive. -renal us reviewed and not impressive. -leukocytosis was most likely due to cellulitis in which it improved drastically with treatment. Right LE cellulitis -patient on cefepime. -since WBC increasing will add vancomycin for MRSA coverage. -Leukocytosis and cellulitis improved with treatment. will continue with vancomycin for 1 more day. -wound care consulted for skin tear. UTI, Ecoli -on cefepime in which it was pansensitive to all medication. Patient completed 5 days of cefepime will discontinue. COPD with no exacerbation -continue advair - neb treatment as needed Dementia -Patient back to baseline. glaucoma -Continue with home medication. -DVT prophylaxis with SCD's DNR status patient nurse at bedside during interview and examination. Discharge Planning Patient will go home with home hospice. Hospice is working with the [facility]. Patient is medically clear for discharge pending placement. Per hospice most likely she can be discharged tomorrow. Problem Qualifiers (1) Sepsis: Qualified Code: A41.9 - Sepsis, due to unspecified organism (2) UTI (urinary tract infection): Qualified Code: N30.00 - Acute cystitis without hematuria Shagufta Davenport MD Aug 08, 2016 13:13
[2016-08-08] MEDS: DOXYCYCLINE HYCLATE 100 MG TAB PO SCH ×2 (14:52→20:23)
[2016-08-08 16:00] VITALS: BP 144/69; PULSE 90; RESP 17; TEMP 96.8; O2SAT 92
[2016-08-08 19:57] VITALS: BP 130/62; PULSE 83; RESP 18; TEMP 99; O2SAT 92
[2016-08-09] VITALS: BP 115/57; PULSE 83; RESP 18; TEMP 100.4; O2SAT 93
[2016-08-09] MEDS: ACETAMINOPHEN 325 MG TAB PO PRN ×2 (00:10→05:12)
[2016-08-09 04:00] VITALS: BP 137/63; PULSE 87; RESP 18; TEMP 100.5; O2SAT 93
[2016-08-09] MEDS: ACETAMINOPHEN/HYDROcodone 325 MG/7.5 MG TAB PO PRN ×2 (06:15→20:19)
[2016-08-09] MEDS: ASPIRIN 81 MG CHEW TAB CHEW SCH (07:55)
[2016-08-09] MEDS: DOXYCYCLINE HYCLATE 100 MG TAB PO SCH (07:55)
[2016-08-09] MEDS: SERTRALINE HCL 100 MG TAB PO SCH (07:55)
[2016-08-09] MEDS: BUDESONIDE-FORMOTEROL 80/4.5 MCG INHALER INH SCH ×2 (07:56→20:04)
[2016-08-09] MEDS: TIMOLOL MALEATE 0.5% OPHT SOLN 5 ML BTL EACH EYE SCH ×2 (07:57→20:04)
[2016-08-09] MEDS: BRIMONIDINE TARTRATE 0.2% OPHT SOLN 5 ML BTL EACH EYE SCH ×3 (07:57→16:33)
[2016-08-09 08:00] VITALS: BP 142/63; PULSE 81; RESP 15; TEMP 96.6; O2SAT 94
[2016-08-09] MEDS ORDERED: VANCOMYCIN INJ 1,000 MG in SODIUM CHLOR 0.9% 250 ML INJ 250 ML IV SCH (09:00)
--- NOTE | 2016-08-09 09:33 | HHI.PR ---
Subjective Remarks f/u for UTI and cellulitis. patient had fever last night of 100.5. She is moaning. I asked her if she was in pain she stated yes. When I asked where she would not tell me. Per her nurse Lalito besides the fever no other acute events. Objective Vitals Vital Signs Date Time Temp Pulse Resp B/P Pulse Ox O2 Delivery O2 Flow Rate FiO2 08/09/16 08:00 Nasal Cannula 1.00 08/09/16 07:15 18 08/09/16 04:00 100.5 87 18 137/63 93 08/09/16 00:00 100.4 83 18 115/57 93 08/08/16 20:25 Nasal Cannula 2.00 08/08/16 19:57 99.0 83 18 130/62 92 08/08/16 16:00 96.8 90 17 144/69 92 08/08/16 12:00 97.1 75 18 121/63 95 I/O 08/08/16 08/08/16 08/08/16 08/09/16 08/09/16 08/09/16 07:00 15:00 23:00 07:00 15:00 23:00 Intake Total 60 ml 554 ml 60 ml 60 ml Balance 60 ml 554 ml 60 ml 60 ml Intake Oral 60 ml 200 ml 60 ml 60 ml IV Total 354 ml 0 ml 0 ml # Voids 3 3 3 4 # Bowel Movements 0 0 0 0 Result Diagram: 08/08/16 1116 08/07/16 1017 Objective Remarks GENERAL: in NAD but is moaning CARDIOVASCULAR: Regular rate and rhythm without murmurs, gallops, or rubs. RESPIRATORY: Breath sounds equal bilaterally. No accessory muscle use. GASTROINTESTINAL: Abdomen soft, no TTP of lower abdominal area. no CVA tenderness no peritoneal signs. MUSCULOSKELETAL: No cyanosis, or edema. she seems to be sensitive to touch. BACK: No CVA tenderness. SKIN: right leg with wound due to skin tear. Dry clean and intact. pinkish coloration of right lower ext that has improved and almost resolved. Procedures Medications and IVs Current Medications Acetaminophen 650 mg 650 mg ONCE ONCE PO Last administered on 08/02/16t 23:43; Start 08/02/16 at 23:15; Stop 08/02/16 at 23:22; Status DC Cefepime HCl 2000 mg/Sodium Chloride 100 ml @ 200 mls/hr ONCE STAT IV Last administered on 08/02/16 23:43; Start 08/02/16 at 23:01; Stop 08/02/16 at 23:30; Status DC Sodium Chloride (NS 1000 ml Inj) 1,000 ml @ 1,000 mls/hr Q1H ONCE IV Last administered on 08/02/16 23:43; Start 08/02/16 at 23:01; Stop 08/03/16 at 00:00; Status DC Acetaminophen (Tylenol) 650 mg Q4H PRN PO FEVER Last administered on 08/09/16 05:12; Start 08/03/16 at 02:00 Ondansetron HCl 4 mg 4 mg Q8H PRN IV PUSH NAUSEA; Start 08/03/16 at 02:00 Ceftriaxone Sodium/Sodium Chloride (Rocephin Inj/NS Inj) 100 ml @ 200 mls/hr Q24H IV Last administered on 08/04/16 04:42; Start 08/03/16 at 06:00; Stop at 09:26; Status DC Aspirin (Aspirin Chew) 81 mg DAILY CHEW Last administered on 08/09/16 07:55; Start 08/03/16 at 09:00 Brimonidine Tartrate (Alphagan 0.2% Opth Soln) 1 drop TID EACH EYE Last administered on 08/09/16 07:57; Start 08/03/16 at 09:00 Latanoprost (Xalatan 0.005% Opth Soln) 1 drop HS EACH EYE Last administered on 08/08/16 20:07; Start 08/03/16 at 21:00 Sertraline HCl (Zoloft) 100 mg DAILY PO Last administered on 08/09/16 07:55; Start 08/03/16 at 09:00 Timolol Maleate (Timoptic 0.5% Opth Soln) 1 drop BID EACH EYE Last administered on 08/09/16 07:57; Start 08/03/16 at 09:00 Budesonide/ Formoterol Fumarate (Symbicort 80-4.5 Mcg Inh) 2 puff BID INH Last administered on 08/09/16 07:56; Start 08/03/16 at 09:00 Pantoprazole Sodium (Protonix) 20 mg DAILY PRN PO SEE LABEL COMMENTS Last administered on 08/05/16 08:31; Start 08/03/16 at 03:15 Albuterol Sulfate 1.25 mg 1.25 mg Q4HR NEB PRN NEB SHORTNESS OF BREATH; Start 08/03/16 at 03:00 Sodium Chloride 250 ml @ 250 mls/hr BOLUS ONCE IV Last administered on 04:45; Start 08/03/16 at 04:45; Stop 08/03/16 at 05:44; Status DC Sodium Chloride 1,000 ml @ 50 mls/hr Q20H IV Last administered on 08/08/16 00 :15; Start 08/04/16 at 09:30; Stop 08/08/16 at 07:38; Status DC Cefepime HCl/ Sodium Chloride (Maxipime Inj/NS Inj) 100 ml @ 200 mls/hr Q12H IV Last administered on 08/08/16 10:09; Start 08/04/16 at 10:00; Stop 08/08/16 at 13:14; Status DC Morphine Sulfate (Morphine Inj) 1 mg Q6H PRN IV PUSH pain 1-10; Start 08/04/16 at 17:45; Stop 08/04/16 at 17:52; Status DC Morphine Sulfate (Morphine Inj) 0.25 mg Q6H PRN IV PUSH pain 1-10; Start at 23:45 Acetaminophen/ Hydrocodone Bitart ([place] 5-325 Mg) 1 tab Q6H PRN PO pain 1-6 Last administered on 08/07/16 06:35; Start 08/04/16 at 18:00 Acetaminophen/ Hydrocodone Bitart 1 tab 1 tab Q6H PRN PO pain 7-10 Last administered on 08/09/16 06:15; Start 08/04/16 at 18:00 Sodium Chloride (NS 1000 ml Inj) 1,000 ml @ 999 mls/hr BOLUS ONCE IV Last administered on 08/04/16 22:30; Start 08/04/16 at 22:30; Stop 08/04/16 at 23:30; Status DC Potassium Chloride 30 meq 30 meq ONCE ONCE PO Last administered on 08/05/16 12 :41; Start 08/05/16 at 10:15; Stop 08/05/16 at 10:16; Status DC Vancomycin HCl 1000 mg/Sodium Chloride 250 ml @ 250 mls/hr ONCE ONCE IV ; Start 08/06/16 at 08:15; Stop 08/06/16 at 09:14; Status UNV Pharmacy Profile Note 0 ml @ 0 mls/hr UNSCH OTHER ; Start 08/06/16 at 08:15; Stop 08/08/16 at 14:21; Status DC Vancomycin HCl/ Sodium Chloride (Vancomycin Inj/ NS 250 ml Inj) 250 ml @ 250 mls/hr Q24H IV Last administered on 08/08/16 11:20; Start 08/06/16 at 10:00; Stop 08/08/16 at 14:22; Status DC Miscellaneous Information SPECIFIC LAB TO BE KASSANDRA... ONCE ONCE .XX ; Start 08/09 at 09:45; Stop 08/09/16 at 09:46; Status Cancel Potassium Chloride (KCl) 30 meq ONCE ONCE PO Last administered on 08/07/16 08 :42; Start 08/07/16 at 09:00; Stop 08/07/16 at 09:01; Status DC Iohexol (Omnipaque 350 Inj) 75 ml STK-MED ONCE IV Last administered on 00:54; Start 08/03/16 at 00:54; Stop 08/07/16 at 13:06; Status DC Doxycycline Hyclate 100 mg 100 mg Q12HR PO Last administered on 08/09/16 07:55 ; Start 08/08/16 at 14:30 Vancomycin HCl 1000 mg/Sodium Chloride 250 ml @ 250 mls/hr Q12H IV ; Start 04/15 at 09:00 Cefepime HCl 2000 mg/Sodium Chloride 100 ml @ 200 mls/hr Q12H IV ; Start at 10:00 Sodium Chloride (NS 1000 ml Inj) 1,000 ml @ 75 mls/hr [id number] IV ; Start at 08:45 A/P Problem List: (1) Sepsis ICD Code: A41.9 Status: Acute (2) UTI (urinary tract infection) ICD Code: N39.0 Status: Acute Assessment and Plan Sepsis -Patient had leukocytosis, tachycardia, and fever. UA suggest UTI. Ct scan of ab/pel done which was reviewed and did not explain her pain. -Patient given a dose of cefepime in the ED and was changed to Rocephin. -Since patient is more lethargic on 08/04 and leukocytosis decrease minimally she was change back to cefepime for pseudomonas coverage. -urine cultures grew Ecoli and pansensitive. -renal us reviewed and not impressive. -leukocytosis was most likely due to cellulitis in which it improved drastically with treatment. -when patient was transition to PO antibiotic with PO Doxycycline she developed fevers again. -will get fever work up with CXR, UA, blood cultures, recheck CBC. consult ID. Right LE cellulitis -patient on cefepime. -since WBC increasing vancomycin was added for MRSA coverage. -Leukocytosis and cellulitis improved with treatment. Since drastic improvement in cellulitits that was d/c and she was put on Doxycycline. -developed low grade fever off IV antibiotics last night. will do fever work up and restart IV vanco and cefepime. consult ID. -wound care consulted for skin tear. UTI, Ecoli -on cefepime in which it was pansensitive to all medication. Patient completed 5 days of cefepime so was discontinues and she was put on Doxycycline afterwards. -repeat UA due to fevers. COPD with no exacerbation -continue advair - neb treatment as needed Dementia -Patient back to baseline. glaucoma -Continue with home medication. -DVT prophylaxis with SCD's DNR status patient nurse at bedside during interview and examination. Discharge Planning d/w Patient's healthcare proxy Mariajose (her daughter) over the phone at in regards to her mother's hospital course, diagnosis, prognosis, treatment and management. Per Mariajose she wants the infection to be treated but continue with DNR. She stated that she will get in tonight and decide if they want hospice but wants me to continue with treatment. Note: Patient granddaughter is not the healthcare proxy but her number was listed in the EMR system as the salesperson surgical appliances. There is a scheduled meeting today with her and hospice. I d/w case management in regards to that and relayed the information that Mariajose does not want to make any decisions until she sees her mother bret. Hospice meeting should involved her daughter Mariajose since she is making the medical decisions. Nurse Starkey was present during my phone conversation with Mariajose. Problem Qualifiers (1) Sepsis: Qualified Code: A41.9 - Sepsis, due to unspecified organism (2) UTI (urinary tract infection): Qualified Code: N30.00 - Acute cystitis without hematuria Shagufta Davenport MD Aug 09, 2016 09:33
--- NOTE | 2016-08-09 09:37 | RADRPT ---
EXAM DATE/TIME: 08/09/2016 09:14 [facility] COMPARISON: CHEST PA & LAT, November 15, 2015, 13:04. INDICATIONS : Cough. MEDICAL HISTORY : Chronic obstructive pulmonary disease. Hemophilia SURGICAL HISTORY : None. ENCOUNTER: Subsequent ACUITY: 4 - 6 days PAIN SCORE: 0/10 LOCATION: Bilateral chest FINDINGS: Decreased lung volumes and mild diffuse interstitial prominence. There is a small right-sided pleural effusion identified. No definite consolidation. CONCLUSION: Small right-sided pleural effusion and mild diffuse interstitial prominence. Brock Ch MD on August 09, 2016 at 9:35 Board Certified Radiologist. This report was verified electronically.
[2016-08-09] MEDS: SODIUM CHLOR 0.9% 1000 ML INJ 1,000 ML IV SCH ×2 (09:42→20:05)
[2016-08-09] MEDS ORDERED: PHARMACY ORDERED LAB ONE (09:45)
[2016-08-09 11:27] LABS: BACTERIA, URINE RARE /hpf; BLOOD, URINE TRACE (NEG); GLUCOSE,URINE NEG (NEG); KETONE, URINE NEG (NEG); MUCUS URINE FEW /lpf (OCC); NITRITE,URINE NEG (NEG); SQUAMOUS EPITHELIAL CELL URINE 1 /hpf (0-5); URINE COLOR YELLOW (YELLW/STRAW)
[2016-08-09 11:29] LABS: COMMENT (UR) CATH-CULTURE IND; CULTURE IF INDICATED CATH CULTURE IND
[2016-08-09] MEDS ORDERED: Vancomycin Consult Pharmacy 1 EA OTHER SCH (11:45)
--- NOTE | 2016-08-09 11:45 | PD.CONS ---
History of Present Illness Service Infectious disease Consult Requested By Dr Adali Barnes Reason for Consult Evaluate patient with sepsis UTI and cellulitis Primary Care Physician Noe Acharya Diagnoses: History of Present Illness Patient seen and examined. Records reviewed. Patient is an 85-year-old female came from the halfway brought into the hospital for evaluation of fever and altered mental status. She was lethargic. On a normal basis she is usually awake and interactive. On presentation her WBC was elevated, she had fevers, and her chest x-ray was normal. She was put on empiric antibiotics and showed improvement. However several days ago she was noted to have some redness on her right leg where she had her skin tear. Her white count improved some, but it started increasing again couple days ago. Last night she had a fever again of 101+. She had a repeat chest x-ray which is now showing a possible effusion on the right side. CT of the abdomen and pelvis did not show any significant abnormality. There was no hydronephrosis seen. Infectious disease consultation has been requested to evaluate the patient. Review of Systems ROS Limitations: Clinical Condition, Altered Mental Status Past Family Social History Allergies: Coded Allergies: Biaxin (Verified Allergy, Severe, NAUSEA VOMITING, 08/02/16) Bactrim (Verified Allergy, Unknown, 08/02/16) Enalapril (Verified Allergy, Unknown, 08/02/16) Lovastatin (Verified Allergy, Unknown, 08/02/16) Pravachol (Verified Allergy, Unknown, 08/02/16) Uncoded Allergies: DIPTHERIA INJECTION (Allergy, Unknown, 11/15/15) Past Medical History Dementia COPD Bladder cancer Hyperlipidemia Osteoporosis Past Surgical History Active Ordered Medications Tylenol [place] Albuterol Aspirin Symbicort Cefepime Vancomycin Morphine Zofran Protonix Zoloft Social History [facility] No smoking No alcohol No drugs Physical Exam Vital Signs Vital Signs Date Time Temp Pulse Resp B/P Pulse Ox O2 Delivery O2 Flow Rate FiO2 08/09/16 08:00 Nasal Cannula 1.00 08/09/16 07:15 18 08/09/16 04:00 100.5 87 18 137/63 93 08/09/16 00:00 100.4 83 18 115/57 93 08/08/16 20:25 Nasal Cannula 2.00 08/08/16 19:57 99.0 83 18 130/62 92 08/08/16 16:00 96.8 90 17 144/69 92 08/08/16 12:00 97.1 75 18 121/63 95 Physical Exam GENERAL: This is a thin, frail looking, well-developed female. She keeps her eyes closed, but she does respond some. She is not in any respiratory distress. SKIN: Cool and dry, with scattered ecchymosis. Her skin is atrophic compatible with her age. No generalized rash. HEAD: Atraumatic. Normocephalic. No temporal or scalp tenderness. EYES: [place] conjunctiva. Pupils equal round and reactive. Extraocular motions intact. No scleral icterus. No injection or drainage. ENT: Nose without bleeding, or purulent drainage. She is edentulous, has moist oral mucosa. Throat without erythema, or exudate. NECK: Trachea midline. No JVD or lymphadenopathy. Supple, nontender, no meningeal signs. CARDIOVASCULAR: Regular rate and rhythm without murmurs, gallops, or rubs. RESPIRATORY: Clear to auscultation. Breath sounds equal bilaterally. No wheezes , rales, or rhonchi. Decreased breath sounds at the bases. GASTROINTESTINAL: Abdomen soft, mildly distended, has diffuse abdominal tenderness on palpation. No guarding. Bowel sounds are present and normoactive. MUSCULOSKELETAL: Extremities without clubbing, cyanosis, or edema. No joint tenderness, effusion. No calf tenderness. Skin tear lateral R knee, clean, no evidence of infection. NO cellulitis present NEUROLOGICAL: Keeps her eyes closed, but follows some commands. No facial asymmetry noted. She moves all her extremities. No Babinski. PSYCH: Unable to fully assess LINES: PIV with no evidence of infection Laboratory Laboratory Tests Test 08/09/16 10:15 Urine Color YELLOW Urine Turbidity HAZY Urine pH 6.0 Urine Specific [place] 1.020 Urine Protein 30 Urine Glucose (UA) NEG Urine Ketones NEG Urine Occult Blood TRACE Urine Nitrite NEG Urine Bilirubin NEG Urine Urobilinogen LESS THAN 2.0 Urine Leukocyte Esterase NEG Urine RBC 1 Urine WBC 1 Urine Squamous Epithelial 1 Cells Urine Bacteria RARE Urine Mucus FEW Microscopic Urinalysis Comment CATH-CULTURE IND Date/Time Procedure Status Source Growth 08/09/16 10:15 Urine Culture Received Urine Catheterized Urine Pending Result Diagram: 08/08/16 1116 08/07/16 1017 Imaging RADIOLOGY STUDIES/FILMS REVIEWED Chest X-Ray 08/09/16 0000 Signed Impressions: Service Date/Time: Tuesday, August 09, 2016 09:14 - CONCLUSION: Small right-sided pleural effusion and mild diffuse interstitial prominence. Brock Ch MD Renal Ultrasound 08/05/16 0000 Signed Impressions: Service Date/Time: Friday, August 05, 2016 18:53 - CONCLUSION: 1. No evidence of hydronephrosis. 2. Trace of right perinephric fluid. Nolberto Walton MD Abdomen/Pelvis CT 08/03/16 0000 Signed Impressions: Service Date/Time: July 00:54 - CONCLUSION: 1. No acute abnormality to explain the patient's pain. 2. 1.6 x 1.4 cm nodule involving the right lung base. A short-term followup CT of the thorax in 3-6 months is suggested. At this point a malignancy cannot be excluded. 3. 2.6 cm cystic structure within the right adnexa which is likely ovarian in nature. It can be further assessed with a short-term followup pelvic ultrasound if clinically warranted. 4. Colonic diverticulosis. Jaden Hendrix Jr., MD Head CT 08/02/16 2301 Signed Impressions: Service Date/Time: July 00:50 - CONCLUSION: No acute disease. Jaden Hendrix Jr., MD Assessment and Plan Assessment and Plan IMPRESSION Sepsis on admission, due to UTI Recurrent fever, has moist cough, and new infiltrate R base, possibly now with PNA Has known COPD per history Leukocytosis RECOMMENDATION Repeat 2 blood cultures Follow temperature Follow new cultures Get a bladder scan to see if she is retaining Agree with current antibiotics, she is on cefepime and IV vancomycin Monitor progress I will term course of antibiotic depending on her progress and the results of the workup I will follow along with you. Thank you for this consultation Discussed Condition With Discussed with Cindy Villagran MD Aug 09, 2016 11:45
[2016-08-09] MEDS: CEFEPIME INJ 2,000 MG in SODIUM CHLORIDE 0.9% INJ 100 ML IV SCH ×2 (11:54→20:05)
[2016-08-09 12:00] VITALS: BP 167/70; PULSE 91; RESP 20; TEMP 96.7; O2SAT 86
[2016-08-09 13:25] LABS: AUTOMATED NEUTROPHIL # 18.1 TH/MM3 (1.8-7.7); BASOPHIL % 0.1 % (0.0-2.0); EOSINOPHIL % 0.1 % (0.0-4.0); HEMATOCRIT 25.1 % (35.0-46.0); LYMPH % 2.4 % (9.0-44.0); LYMPHOCYTE # 0.5 TH/MM3 (1.0-4.8); MEAN CELL VOLUME 69.1 FL (80.0-100.0); MEAN CORPUSCULAR HEMOGLOBIN 21.5 PG (27.0-34.0); MEAN CORPUSCULAR HGB CONC 31.2 % (32.0-36.0); MONO % 4.8 % (0.0-8.0); NEUT % 92.6 % (16.0-70.0); PLATELET COUNT 326 TH/MM3 (150-450); RED BLOOD COUNT 3.63 MIL/MM3 (4.00-5.30); RED CELL DISTRIBUTION WIDTH 18.3 % (11.6-17.2); WHITE BLOOD COUNT 19.5 TH/MM3 (4.0-11.0)
[2016-08-09 13:35] LABS: HEMO FLAGS AUTO DIFF
[2016-08-09 13:40] LABS: BICARBONATE 26.7 MEQ/L (21.0-32.0); POTASSIUM 3.1 MEQ/L (3.5-5.1)
[2016-08-09 14:18] LABS: BANDS 24 % (0-6); MYELOCYTES 1 % (0-0); NEUTROPHIL # MANUAL DIFF 18.1 TH/MM3 (1.8-7.7); PLATELET ESTIMATE SMEAR NORMAL (NORMAL); PLATELET MORPHOLOGY NORMAL (NORMAL); POLYS (SEG NEUTROPHILS) 68 % (16-70); SCAN/DIFF FINAL DIFF MANUAL; TOXIC GRANULATION 1+ (NORMAL); WBC DIFF SAMPLE 100
[2016-08-09 14:19] LABS: OVALOCYTES 1+ (NORMAL)
[2016-08-09 16:00] VITALS: BP 170/70; PULSE 97; RESP 18; TEMP 95.4; O2SAT 92
[2016-08-09 20:00] VITALS: BP 135/78; PULSE 93; RESP 18; TEMP 97.7; O2SAT 93
[2016-08-09] MEDS: LATANOPROST 0.005% OPHT SOLN 2.5 ML BTL EACH EYE SCH (20:04)
[2016-08-10] VITALS: BP 126/66; PULSE 86; RESP 16; TEMP 98.3; O2SAT 94
[2016-08-10 04:20] LABS: HEMATOCRIT 26.7 % (35.0-46.0); MEAN CELL VOLUME 67.8 FL (80.0-100.0); MEAN CORPUSCULAR HEMOGLOBIN 21.1 PG (27.0-34.0); MEAN CORPUSCULAR HGB CONC 31.2 % (32.0-36.0); PLATELET COUNT 387 TH/MM3 (150-450); RED BLOOD COUNT 3.94 MIL/MM3 (4.00-5.30); RED CELL DISTRIBUTION WIDTH 18.6 % (11.6-17.2); WHITE BLOOD COUNT 24.4 TH/MM3 (4.0-11.0)
[2016-08-10 04:39] LABS: BICARBONATE 28.1 MEQ/L (21.0-32.0)
[2016-08-10] MEDS: ACETAMINOPHEN/HYDROcodone 325 MG/7.5 MG TAB PO PRN ×2 (04:41→22:59)
[2016-08-10 05:01] LABS: REVIEW FLAG FINAL
[2016-08-10 08:00] VITALS: BP 135/75; PULSE 86; RESP 17; TEMP 96.4; O2SAT 97
[2016-08-10] MEDS: SERTRALINE HCL 100 MG TAB PO SCH (09:45)
[2016-08-10] MEDS ORDERED: POTASSIUM CHLORIDE 25 MEQ EFFERVESCENT TAB PO ONE (09:45)
[2016-08-10] MEDS: ASPIRIN 81 MG CHEW TAB CHEW SCH (09:45)
[2016-08-10] MEDS: TIMOLOL MALEATE 0.5% OPHT SOLN 5 ML BTL EACH EYE SCH ×2 (09:46→11:51)
[2016-08-10] MEDS: CEFEPIME INJ 2,000 MG in SODIUM CHLORIDE 0.9% INJ 100 ML IV SCH ×2 (09:46→21:48)
[2016-08-10] MEDS: BUDESONIDE-FORMOTEROL 80/4.5 MCG INHALER INH SCH ×2 (09:46→21:40)
[2016-08-10] MEDS: BRIMONIDINE TARTRATE 0.2% OPHT SOLN 5 ML BTL EACH EYE SCH ×3 (09:46→17:33)
[2016-08-10] MEDS ORDERED: VANCOMYCIN INJ 1,000 MG in SODIUM CHLOR 0.9% 250 ML INJ 250 ML IV SCH (10:00)
[2016-08-10] MEDS: SODIUM CHLOR 0.9% 1000 ML INJ 1,000 ML IV SCH (11:50)
[2016-08-10] MEDS: MAGNESIUM HYDROXIDE SUSP 30 ML CUP PO SCH (11:50)
[2016-08-10 12:00] VITALS: BP 127/66; PULSE 83; RESP 16; TEMP 97.1; O2SAT 95
--- NOTE | 2016-08-10 14:34 | HHI.IDPN ---
Subjective Subjective Remarks Notes reviewed Temps better WBC worse CXR with R effusion, and interstitial prominence Very weak, sleeping, slow to arouse Antibiotics Cefepime Vancomycin Past Medical History Dementia COPD Bladder cancer Hyperlipidemia Osteoporosis Past Surgical History Allergies: Coded Allergies: Biaxin (Verified Allergy, Severe, NAUSEA VOMITING, 08/02/16) Bactrim (Verified Allergy, Unknown, 08/02/16) Enalapril (Verified Allergy, Unknown, 08/02/16) Lovastatin (Verified Allergy, Unknown, 08/02/16) Pravachol (Verified Allergy, Unknown, 08/02/16) Uncoded Allergies: DIPTHERIA INJECTION (Allergy, Unknown, 11/15/15) Objective . Vital Signs Date Time Temp Pulse Resp B/P Pulse Ox O2 Delivery O2 Flow Rate FiO2 08/10/16 12:00 97.1 83 16 127/66 95 08/10/16 09:00 2.00 08/10/16 08:00 96.4 86 17 135/75 97 08/10/16 00:00 98.3 86 16 126/66 94 08/09/16 20:05 Nasal Cannula 2.00 08/09/16 20:00 97.7 93 18 135/78 93 08/09/16 16:00 95.4 97 18 170/70 92 08/09/16 08/09/16 08/10/16 15:00 23:00 07:00 Intake Total 1008 ml 120 ml 1112 ml Balance 1008 ml 120 ml 1112 ml Intake Oral 600 ml 120 ml IV Total 408 ml 1112 ml Bladder Scan Volume Amount 79 ml # Voids 4 2 # Bowel Movements 0 0 . Laboratory Tests Test 08/09/16 08/10/16 12:35 03:50 White Blood Count 19.5 TH/MM3 24.4 TH/MM3 Red Blood Count 3.63 MIL/MM3 3.94 MIL/MM3 Hemoglobin 7.8 GM/DL 8.3 GM/DL Hematocrit 25.1 % 26.7 % Mean Corpuscular Volume 69.1 FL 67.8 FL Mean Corpuscular Hemoglobin 21.5 PG 21.1 PG Mean Corpuscular Hemoglobin 31.2 % 31.2 % Concent Red Cell Distribution Width 18.3 % 18.6 % Platelet Count 326 TH/MM3 387 TH/MM3 Mean Platelet Volume 8.9 FL 8.9 FL Neutrophils (%) (Auto) 92.6 % Lymphocytes (%) (Auto) 2.4 % Monocytes (%) (Auto) 4.8 % Eosinophils (%) (Auto) 0.1 % Basophils (%) (Auto) 0.1 % Neutrophils # (Auto) 18.1 TH/MM3 Lymphocytes # (Auto) 0.5 TH/MM3 Monocytes # (Auto) 0.9 TH/MM3 Eosinophils # (Auto) 0.0 TH/MM3 Basophils # (Auto) 0.0 TH/MM3 CBC Comment AUTO DIFF Differential Total Cells 100 Counted Neutrophils % (Manual) 68 % Band Neutrophils % 24 % Lymphocytes % 2 % Monocytes % 5 % Neutrophils # (Manual) 18.1 TH/MM3 Myelocytes 1 % Differential Comment FINAL DIFF MANUAL Toxic Granulation 1+ Platelet Estimate NORMAL Platelet Morphology Comment NORMAL Ovalocytes 1+ Laboratory Tests Test 08/09/16 08/10/16 12:35 03:50 Sodium Level 140 MEQ/L 142 MEQ/L Potassium Level 3.1 MEQ/L 3.0 MEQ/L Chloride Level 108 MEQ/L 105 MEQ/L Carbon Dioxide Level 26.7 MEQ/L 28.1 MEQ/L Anion Gap 5 MEQ/L 9 MEQ/L Blood Urea Nitrogen 11 MG/DL 10 MG/DL Creatinine 0.48 MG/DL 0.33 MG/DL Estimat Glomerular Filtration 123 ML/MIN 190 ML/MIN Rate Random Glucose 123 MG/DL 98 MG/DL Calcium Level 8.1 MG/DL 8.0 MG/DL Magnesium Level 1.9 MG/DL Microbiology Date/Time Procedure Status Source Growth 08/09/16 10:15 Urine Culture - Preliminary Resulted Urine Catheterized Urine NO GROWTH IN 24 HOURS. 08/09/16 12:35 Aerobic Blood Culture - Preliminary Resulted Blood Peripheral NO GROWTH IN 1 DAY 08/09/16 12:35 Anaerobic Blood Culture - Preliminary Resulted Blood Peripheral NO GROWTH IN 1 DAY 08/09/16 12:46 Aerobic Blood Culture - Preliminary Resulted Blood Peripheral NO GROWTH IN 1 DAY 08/09/16 12:46 Anaerobic Blood Culture - Preliminary Resulted Blood Peripheral NO GROWTH IN 1 DAY Imaging Chest X-Ray 08/09/16 0000 Signed Impressions: Service Date/Time: Tuesday, August 09, 2016 09:14 - CONCLUSION: Small right-sided pleural effusion and mild diffuse interstitial prominence. Brock Ch MD Renal Ultrasound 08/05/16 0000 Signed Impressions: Service Date/Time: Friday, August 05, 2016 18:53 - CONCLUSION: 1. No evidence of hydronephrosis. 2. Trace of right perinephric fluid. Nolberto Walton MD Abdomen/Pelvis CT 08/03/16 0000 Signed Impressions: Service Date/Time: July 00:54 - CONCLUSION: 1. No acute abnormality to explain the patient's pain. 2. 1.6 x 1.4 cm nodule involving the right lung base. A short-term followup CT of the thorax in 3-6 months is suggested. At this point a malignancy cannot be excluded. 3. 2.6 cm cystic structure within the right adnexa which is likely ovarian in nature. It can be further assessed with a short-term followup pelvic ultrasound if clinically warranted. 4. Colonic diverticulosis. Jaden Hendrix Jr., MD Head CT 08/02/16 2301 Signed Impressions: Service Date/Time: July 00:50 - CONCLUSION: No acute disease. Jaden Hendrix Jr., MD Physical Exam GENERAL: This is a thin, frail looking. She keeps her eyes closed, but she does respond some. She is not in any respiratory distress. SKIN: Cool and dry, with scattered ecchymosis. Her skin is atrophic compatible with her age. No generalized rash. HEAD: Atraumatic. Normocephalic. No temporal or scalp tenderness. EYES: [place] conjunctiva. Pupils equal round and reactive. Extraocular motions intact. No scleral icterus. No injection or drainage. ENT: Nose without bleeding, or purulent drainage. She is edentulous, has moist oral mucosa. Throat without erythema, or exudate. NECK: Trachea midline. No JVD or lymphadenopathy. Supple, nontender, no meningeal signs. CARDIOVASCULAR: Regular rate and rhythm without murmurs, gallops, or rubs. RESPIRATORY: Clear to auscultation. Breath sounds equal bilaterally. Decreased breath sounds at the bases. GASTROINTESTINAL: Abdomen soft, mildly distended, has diffuse abdominal tenderness on palpation. No guarding. Bowel sounds are present and normoactive. MUSCULOSKELETAL: Extremities without clubbing, cyanosis, or edema. No joint tenderness, effusion. No calf tenderness. Skin tear lateral R knee, clean, no evidence of infection. NO cellulitis present NEUROLOGICAL: Keeps her eyes closed. PSYCH: Unable to fully assess LINES: PIV with no evidence of infection Assessment & Plan Remarks IMPRESSION Sepsis on admission, due to UTI Recurrent fever, has moist cough, and new infiltrate R base, possibly now with PNA Has known COPD per history Leukocytosis, worse, ?lung RECOMMENDATION Follow temperature Follow new cultures Agree with current antibiotics, she is on cefepime and IV vancomycin Monitor progress D/W RN Not sure if family completely understands Hospice Will also need to address nutrition ?Palliative med consult to help delineate goals of therapy Cindy Sanchez MD Aug 10, 2016 14:34
[2016-08-10 16:00] VITALS: BP 120/63; PULSE 84; RESP 17; TEMP 97.3; O2SAT 93
--- NOTE | 2016-08-10 16:18 | HHI.PR ---
Subjective Remarks Patient quite lethargic really not eating. Unable to answer questions. Objective Vitals Vital Signs Date Time Temp Pulse Resp B/P Pulse Ox O2 Delivery O2 Flow Rate FiO2 08/10/16 12:00 97.1 83 16 127/66 95 08/10/16 09:00 2.00 08/10/16 08:00 96.4 86 17 135/75 97 08/10/16 00:00 98.3 86 16 126/66 94 08/09/16 20:05 Nasal Cannula 2.00 08/09/16 20:00 97.7 93 18 135/78 93 I/O 08/09/16 08/09/16 08/09/16 08/10/16 08/10/16 08/10/16 07:00 15:00 23:00 07:00 15:00 23:00 Intake Total 60 ml 1008 ml 120 ml 1112 ml 766 ml Balance 60 ml 1008 ml 120 ml 1112 ml 766 ml Intake Oral 60 ml 600 ml 120 ml IV Total 0 ml 408 ml 1112 ml 766 ml Bladder Scan Volume Amount 79 ml # Voids 4 4 2 # Bowel Movements 0 0 0 Result Diagram: 08/10/16 0350 08/10/16 0350 Objective Remarks GENERAL: Frail elderly female patient. SKIN: Warm and dry. HEAD: Normocephalic. EYES: No scleral icterus. No injection or drainage. NECK: Supple, trachea midline. No JVD or lymphadenopathy. CARDIOVASCULAR: Regular rate and rhythm without murmurs, gallops, or rubs. RESPIRATORY: Mildly increased respiratory rate on nasal cannula. Coarse lung sounds anteriorly and bilaterally. GASTROINTESTINAL: Abdomen soft, non-tender, nondistended. EXTREMITIES: No cyanosis, or edema. NEUROLOGICAL: Sleeping becomes awake and alert but not oriented. Procedures A/P Problem List: (1) Sepsis ICD Code: A41.9 Status: Acute (2) UTI (urinary tract infection) ICD Code: N39.0 Status: Acute (3) Community acquired pneumonia ICD Code: J18.9 Status: Acute (4) Dementia ICD Code: F03.90 Status: Acute (5) Pleural effusion, right ICD Code: J90 Status: Acute (6) COPD (chronic obstructive pulmonary disease) ICD Code: J44.9 Status: Acute Assessment and Plan Sepsis -Patient had leukocytosis, tachycardia, and fever. UA suggest UTI. Ct scan of ab/pel done which was reviewed and did not explain her pain. -Patient given a dose of cefepime in the ED and was changed to Rocephin. -Since patient is more lethargic on 08/04 and leukocytosis decrease minimally she was change back to cefepime for pseudomonas coverage. -urine cultures grew Ecoli and pansensitive. -renal us reviewed and not impressive. New fever/tachycardia - worsening lekuocytosis - due to pneumonia? - Chest x- ray August 09 showing right sided pleural effusion and mild diffuse interstitial prominence. We will check a BNP. Consider low-dose Lasix. Continue vancomycin and cefepime IV. Blood cultures and urine cultures from 08/09 are negative today. Appreciate infectious disease input. 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 Right LE cellulitis COPD with no exacerbation -continue advair - neb treatment as needed Dementia - appears to be advanced. glaucoma -Continue with home medication. Hypokalemia. Check magnesium level. K-Lyte given. -DVT prophylaxis with SCD's DNR status - patient appears to be declining. Apparently hospice has seen the patient. We'll consult palliative care for clarification of goals. Guarded prognosis. Problem Qualifiers (1) Sepsis: Qualified Code: A41.9 - Sepsis, due to unspecified organism (2) UTI (urinary tract infection): Qualified Code: N30.00 - Acute cystitis without hematuria Afshan Espinoza MD Aug 10, 2016 16:18
[2016-08-10 20:00] VITALS: BP 161/89; PULSE 89; RESP 18; TEMP 97.3; O2SAT 95
[2016-08-10] MEDS: LATANOPROST 0.005% OPHT SOLN 2.5 ML BTL EACH EYE SCH (21:19)
[2016-08-10] MEDS: DOCUSATE SODIUM 50 MG/SENNA 8.6 MG TAB PO SCH (21:40)
[2016-08-10] MEDS: VANCOMYCIN INJ 1,000 MG in SODIUM CHLOR 0.9% 250 ML INJ 250 ML IV SCH (22:57)
[2016-08-11] VITALS: BP 168/90; PULSE 93; RESP 18; TEMP 98.1
[2016-08-11] MEDS: SODIUM CHLOR 0.9% 1000 ML INJ 1,000 ML IV SCH ×2 (00:45→11:48)
[2016-08-11 04:24] LABS: AUTOMATED NEUTROPHIL # 22.5 TH/MM3 (1.8-7.7); BASOPHIL % 0.2 % (0.0-2.0); EOSINOPHIL % 0.1 % (0.0-4.0); HEMATOCRIT 25.8 % (35.0-46.0); LYMPH % 3.1 % (9.0-44.0); LYMPHOCYTE # 0.8 TH/MM3 (1.0-4.8); MEAN CELL VOLUME 68.8 FL (80.0-100.0); MEAN CORPUSCULAR HEMOGLOBIN 21.6 PG (27.0-34.0); MEAN CORPUSCULAR HGB CONC 31.3 % (32.0-36.0); MONO % 4.8 % (0.0-8.0); NEUT % 91.8 % (16.0-70.0); PLATELET COUNT 449 TH/MM3 (150-450); RED BLOOD COUNT 3.75 MIL/MM3 (4.00-5.30); RED CELL DISTRIBUTION WIDTH 18.7 % (11.6-17.2); WHITE BLOOD COUNT 24.5 TH/MM3 (4.0-11.0)
[2016-08-11 04:35] LABS: BICARBONATE 28.4 MEQ/L (21.0-32.0); POTASSIUM 3.1 MEQ/L (3.5-5.1)
[2016-08-11 04:40] LABS: HEMO FLAGS AUTO DIFF
[2016-08-11 05:20] LABS: SCAN/DIFF AUTO DIFF CONFIRMED
[2016-08-11 05:21] LABS: ACANTHOCYTES OCC (NORMAL); PLATELET ESTIMATE SMEAR NORMAL (NORMAL); PLATELET MORPHOLOGY NORMAL (NORMAL)
[2016-08-11 08:00] VITALS: BP 151/71; PULSE 91; RESP 24; TEMP 96.8; O2SAT 95
[2016-08-11] MEDS: ASPIRIN 81 MG CHEW TAB CHEW SCH (08:46)
[2016-08-11] MEDS: DOCUSATE SODIUM 50 MG/SENNA 8.6 MG TAB PO SCH ×2 (08:46→21:00)
[2016-08-11] MEDS: SERTRALINE HCL 100 MG TAB PO SCH (08:47)
[2016-08-11] MEDS: ACETAMINOPHEN/HYDROcodone 325 MG/5 MG TAB PO PRN (08:47)
[2016-08-11] MEDS: MAGNESIUM HYDROXIDE SUSP 30 ML CUP PO SCH (08:47)
[2016-08-11] MEDS: CEFEPIME INJ 2,000 MG in SODIUM CHLORIDE 0.9% INJ 100 ML IV SCH (08:47)
[2016-08-11] MEDS: BUDESONIDE-FORMOTEROL 80/4.5 MCG INHALER INH SCH ×2 (08:47→22:22)
[2016-08-11] MEDS: BRIMONIDINE TARTRATE 0.2% OPHT SOLN 5 ML BTL EACH EYE SCH ×3 (08:47→17:14)
[2016-08-11] MEDS: TIMOLOL MALEATE 0.5% OPHT SOLN 5 ML BTL EACH EYE SCH ×2 (08:50→22:22)
[2016-08-11] MEDS ORDERED: POTASSIUM CHLORIDE 25 MEQ EFFERVESCENT TAB PO ONE (10:00)
--- NOTE | 2016-08-11 10:25 | HHI.HCPN ---
Palliative received new consultation for this patient. Upon review of available chart, documented per CM patient/family elected to enroll in [facility] hospice. I Discussed with [facility] admissions, they have been following/ meeting with patient, goals are for hospice---> they were going to initially enroll in [facility] however he elected [facility] hospice, plan is to D/c to [facility]. Palliative Care available if needed for assistance with symptom management, or additional clarification of goals. Krystin Rodriguez Aug 11, 2016 10:25
--- NOTE | 2016-08-11 10:57 | HHI.PR ---
Subjective Remarks Patient is slightly more alert today. She states "I'm good." She denies any pain. Objective Vitals Vital Signs Date Time Temp Pulse Resp B/P Pulse Ox O2 Delivery O2 Flow Rate FiO2 08/11/16 08:20 Nasal Cannula 2.00 08/11/16 08:00 96.8 91 24 151/71 95 08/11/16 00:00 98.1 93 18 168/90 08/10/16 20:35 95 Nasal Cannula 3.00 08/10/16 20:00 97.3 89 18 161/89 95 08/10/16 16:00 97.3 84 17 120/63 93 08/10/16 12:00 97.1 83 16 127/66 95 I/O 08/10/16 08/10/16 08/10/16 08/11/16 08/11/16 08/11/16 07:00 15:00 23:00 07:00 15:00 23:00 Intake Total 1112 ml 1116 ml 436 ml 500 ml Balance 1112 ml 1116 ml 436 ml 500 ml Intake Oral 350 ml 25 ml IV Total 1112 ml 766 ml 411 ml 500 ml # Voids 2 3 4 # Bowel Movements 0 0 0 Result Diagram: 08/11/16 0329 08/11/16 0329 Objective Remarks GENERAL: Frail elderly female patient. SKIN: Warm and dry. HEAD: Normocephalic. EYES: No scleral icterus. No injection or drainage. NECK: Supple, trachea midline. No JVD or lymphadenopathy. CARDIOVASCULAR: Regular rate and rhythm without murmurs, gallops, or rubs. RESPIRATORY: Mildly increased respiratory rate on nasal cannula. Coarse lung sounds anteriorly and bilaterally. GASTROINTESTINAL: Abdomen soft, non-tender, nondistended. EXTREMITIES: No cyanosis, or edema. NEUROLOGICAL: Sleeping becomes awake and alert oriented only to self. Procedures A/P Problem List: (1) Sepsis ICD Code: A41.9 Status: Acute (2) UTI (urinary tract infection) ICD Code: N39.0 Status: Acute (3) Community acquired pneumonia ICD Code: J18.9 Status: Acute (4) Dementia ICD Code: F03.90 Status: Acute (5) Pleural effusion, right ICD Code: J90 Status: Acute (6) COPD (chronic obstructive pulmonary disease) ICD Code: J44.9 Status: Acute Assessment and Plan -Sepsis due to UTI. Sepsis now resolved. Ct scan of ab/pel done was negative on admission. Urine culture grew Escherichia coli. Repeat urine cultures no growth in 48 hours. -Patient given a dose of cefepime in the ED and was changed to Rocephin. -One low grade fever on 08/09 without recurrence. Blood cultures 08/09 and urine culture are no growth to date. Chest x-ray August 09 showing right sided pleural effusion and mild diffuse interstitial prominence. BNP is pending. No history of cardiac disease as per the family. Consider low-dose Lasix. Continue vancomycin and cefepime IV. Appreciate infectious disease input. -Persistent leukocytosis. Unclear etiology. Infectious workup at this time is essentially negative. Possible underlying CLL. Discussed with family. Will obtain PCPs CBC from earlier this year. Offered hematology consultation although at this point in time and will not likely change her clinical picture or prognosis as the more significant concern is the advanced dementia and decline she has had from her hospitalization. They are not wanting to pursue aggressive workup at this time and specifically declined bone marrow biopsy. Discussed with pt's RN today who will obtain the records. Will repeat CBC in a.m. -Right LE cellulitis - clinically improved/resolved. COPD with no exacerbation - on oxygen intermittently at the assisted living facility. -continue advair - neb treatment as needed Dementia - appears to be advanced. I discussed with her daughter and granddaughter today. Reportedly the patient was still ambulatory prior to admission. She has declined significantly since the hospitalization. She is max assist with physical therapy. glaucoma -Continue with home medication. Hypokalemia. magnesium level OK. Repeat K-Lyte 50 meq today. -DVT prophylaxis with SCD's DNR status - patient has had a significant decline since her hospitalization but was previously ambulatory. I discussed with her daughter and granddaughter today and they have opted for her to go with [facility]. They're adamant that she return to her assisted living facility [facility]. They declined [facility] facility. They feel that she perked up somewhat yesterday. We discussed the seeing opioid medications and continuing physical therapy through the weekend. Planning for discharge the assisted living facility on Sunday. They are aware she continues to decline over the weekend that she will likely be nearing the end of her life when she returns to the assisted living facility. They are hopeful however that she will perk up and go on to enjoy some quality of life on hospice. Problem Qualifiers (1) Sepsis: Qualified Code: A41.9 - Sepsis, due to unspecified organism (2) UTI (urinary tract infection): Qualified Code: N30.00 - Acute cystitis without hematuria Afshan Espinoza MD Aug 11, 2016 10:57
[2016-08-11] MEDS: VANCOMYCIN INJ 1,000 MG in SODIUM CHLOR 0.9% 250 ML INJ 250 ML IV SCH (11:48)
[2016-08-11 12:00] VITALS: BP 141/85; PULSE 90; RESP 20; TEMP 96; O2SAT 94
--- NOTE | 2016-08-11 14:39 | HHI.IDPN ---
Subjective Subjective Remarks Notes reviewed Temps better no further fever WBC same 24K Repeat UA ok CXR noted D/W Dr Espinoza Antibiotics Cefepime Vancomycin Past Medical History Dementia COPD Bladder cancer Hyperlipidemia Osteoporosis Past Surgical History Allergies: Coded Allergies: Biaxin (Verified Allergy, Severe, NAUSEA VOMITING, 08/02/16) Bactrim (Verified Allergy, Unknown, 08/02/16) Enalapril (Verified Allergy, Unknown, 08/02/16) Lovastatin (Verified Allergy, Unknown, 08/02/16) Pravachol (Verified Allergy, Unknown, 08/02/16) Uncoded Allergies: DIPTHERIA INJECTION (Allergy, Unknown, 11/15/15) Objective . Vital Signs Date Time Temp Pulse Resp B/P Pulse Ox O2 Delivery O2 Flow Rate FiO2 08/11/16 12:00 96.0 90 20 141/85 94 08/11/16 08:20 Nasal Cannula 2.00 08/11/16 08:00 96.8 91 24 151/71 95 08/11/16 00:00 98.1 93 18 168/90 08/10/16 20:35 95 Nasal Cannula 3.00 08/10/16 20:00 97.3 89 18 161/89 95 08/10/16 16:00 97.3 84 17 120/63 93 08/10/16 08/10/16 08/11/16 15:00 23:00 07:00 Intake Total 1116 ml 436 ml 500 ml Balance 1116 ml 436 ml 500 ml Intake Oral 350 ml 25 ml IV Total 766 ml 411 ml 500 ml # Voids 3 4 # Bowel Movements 0 0 . Laboratory Tests Test 08/10/16 08/11/16 03:50 03:29 White Blood Count 24.4 TH/MM3 24.5 TH/MM3 Red Blood Count 3.94 MIL/MM3 3.75 MIL/MM3 Hemoglobin 8.3 GM/DL 8.1 GM/DL Hematocrit 26.7 % 25.8 % Mean Corpuscular Volume 67.8 FL 68.8 FL Mean Corpuscular Hemoglobin 21.1 PG 21.6 PG Mean Corpuscular Hemoglobin 31.2 % 31.3 % Concent Red Cell Distribution Width 18.6 % 18.7 % Platelet Count 387 TH/MM3 449 TH/MM3 Mean Platelet Volume 8.9 FL 9.1 FL Neutrophils (%) (Auto) 91.8 % Lymphocytes (%) (Auto) 3.1 % Monocytes (%) (Auto) 4.8 % Eosinophils (%) (Auto) 0.1 % Basophils (%) (Auto) 0.2 % Neutrophils # (Auto) 22.5 TH/MM3 Lymphocytes # (Auto) 0.8 TH/MM3 Monocytes # (Auto) 1.2 TH/MM3 Eosinophils # (Auto) 0.0 TH/MM3 Basophils # (Auto) 0.0 TH/MM3 CBC Comment AUTO DIFF Differential Comment AUTO DIFF CONFIRMED Platelet Estimate NORMAL Platelet Morphology Comment NORMAL Acanthocytes OCC Laboratory Tests Test 08/10/16 08/11/16 03:50 03:29 Sodium Level 142 MEQ/L 139 MEQ/L Potassium Level 3.0 MEQ/L 3.1 MEQ/L Chloride Level 105 MEQ/L 105 MEQ/L Carbon Dioxide Level 28.1 MEQ/L 28.4 MEQ/L Anion Gap 9 MEQ/L 6 MEQ/L Blood Urea Nitrogen 10 MG/DL 12 MG/DL Creatinine 0.33 MG/DL 0.39 MG/DL Estimat Glomerular Filtration 190 ML/MIN 157 ML/MIN Rate Random Glucose 98 MG/DL 102 MG/DL Calcium Level 8.0 MG/DL 7.9 MG/DL Magnesium Level 1.9 MG/DL B-Type Natriuretic Peptide 1438 PG/ML Microbiology Date/Time Procedure Status Source Growth 08/09/16 10:15 Urine Culture - Final Complete Urine Catheterized Urine NO GROWTH IN 48 HOURS. 08/09/16 12:35 Aerobic Blood Culture - Preliminary Resulted Blood Peripheral NO GROWTH IN 2 DAYS 08/09/16 12:35 Anaerobic Blood Culture - Preliminary Resulted Blood Peripheral NO GROWTH IN 2 DAYS 08/09/16 12:46 Aerobic Blood Culture - Preliminary Resulted Blood Peripheral NO GROWTH IN 2 DAYS 08/09/16 12:46 Anaerobic Blood Culture - Preliminary Resulted Blood Peripheral NO GROWTH IN 2 DAYS Imaging Chest X-Ray 08/09/16 0000 Signed Impressions: Service Date/Time: Tuesday, August 09, 2016 09:14 - CONCLUSION: Small right-sided pleural effusion and mild diffuse interstitial prominence. Brock Ch MD Renal Ultrasound 08/05/16 0000 Signed Impressions: Service Date/Time: Friday, August 05, 2016 18:53 - CONCLUSION: 1. No evidence of hydronephrosis. 2. Trace of right perinephric fluid. Nolberto Walton MD Abdomen/Pelvis CT 08/03/16 0000 Signed Impressions: Service Date/Time: July 00:54 - CONCLUSION: 1. No acute abnormality to explain the patient's pain. 2. 1.6 x 1.4 cm nodule involving the right lung base. A short-term followup CT of the thorax in 3-6 months is suggested. At this point a malignancy cannot be excluded. 3. 2.6 cm cystic structure within the right adnexa which is likely ovarian in nature. It can be further assessed with a short-term followup pelvic ultrasound if clinically warranted. 4. Colonic diverticulosis. Jaden Hendrix Jr., MD Head CT 08/02/16 2301 Signed Impressions: Service Date/Time: July 00:50 - CONCLUSION: No acute disease. Jaden Hendrix Jr., MD Physical Exam GENERAL: Frail, answered my questions, not in distress SKIN: Cool and dry, with scattered ecchymosis. No generalized rash. HEAD: Atraumatic. Normocephalic. No temporal or scalp tenderness. EYES: [place] conjunctiva. Pupils equal round and reactive. Extraocular motions intact. No scleral icterus. No injection or drainage. ENT: Nose without bleeding, or purulent drainage. She is edentulous, has moist oral mucosa. Throat without erythema, or exudate. NECK: Trachea midline. No JVD or lymphadenopathy. Supple, nontender, no meningeal signs. CARDIOVASCULAR: Regular rate and rhythm without murmurs, gallops, or rubs. RESPIRATORY: Clear to auscultation. Breath sounds equal bilaterally. Decreased breath sounds at the bases. GASTROINTESTINAL: Abdomen soft, mildly distended, not tender. No guarding. Bowel sounds are present and normoactive. MUSCULOSKELETAL: Extremities without clubbing, cyanosis, or edema. No joint tenderness, effusion. No calf tenderness. Skin tear lateral R knee, clean, no evidence of infection. NO cellulitis present NEUROLOGICAL: Keeps her eyes closed. PSYCH: Unable to fully assess LINES: PIV with no evidence of infection Assessment & Plan Remarks IMPRESSION Sepsis on admission, due to UTI Recurrent fever, has moist cough, and new infiltrate R base, possibly now with PNA Has known COPD per history Leukocytosis, persistent, ?lung RECOMMENDATION Follow temperature Follow new cultures Follow CBC Monitor progress Change Abx to Levaquin - give 10 more days Family looking at [facility] D/W Cindy Cooper MD Aug 11, 2016 14:39
[2016-08-11] MEDS: LEVOFLOXACIN 750 MG TAB PO SCH (15:26)
[2016-08-11 16:00] VITALS: BP 154/66; PULSE 94; RESP 22; TEMP 95.7; O2SAT 91
[2016-08-11 20:00] VITALS: BP 124/65; PULSE 88; RESP 19; TEMP 96; O2SAT 96
[2016-08-11] MEDS: LATANOPROST 0.005% OPHT SOLN 2.5 ML BTL EACH EYE SCH (22:22)
[2016-08-12] VITALS: BP 131/72; PULSE 95; RESP 21; TEMP 97; O2SAT 95
[2016-08-12] MEDS: SODIUM CHLOR 0.9% 1000 ML INJ 1,000 ML IV SCH ×2 (03:49→10:44)
[2016-08-12 07:09] LABS: AUTOMATED NEUTROPHIL # 22.7 TH/MM3 (1.8-7.7); HEMATOCRIT 26.4 % (35.0-46.0); LYMPH % 1.9 % (9.0-44.0); LYMPHOCYTE # 0.4 TH/MM3 (1.0-4.8); MEAN CELL VOLUME 70.2 FL (80.0-100.0); MEAN CORPUSCULAR HEMOGLOBIN 21.1 PG (27.0-34.0); MEAN CORPUSCULAR HGB CONC 30.1 % (32.0-36.0); MONO % 2.7 % (0.0-8.0); NEUT % 95.4 % (16.0-70.0); PLATELET COUNT 386 TH/MM3 (150-450); RED BLOOD COUNT 3.76 MIL/MM3 (4.00-5.30); RED CELL DISTRIBUTION WIDTH 18.6 % (11.6-17.2); WHITE BLOOD COUNT 23.8 TH/MM3 (4.0-11.0)
[2016-08-12 07:10] LABS: HEMO FLAGS AUTO DIFF
[2016-08-12 07:15] LABS: BICARBONATE 24.9 MEQ/L (21.0-32.0); POTASSIUM 3.5 MEQ/L (3.5-5.1)
[2016-08-12 08:00] VITALS: BP 130/66; PULSE 92; RESP 20; TEMP 97.1; O2SAT 95
[2016-08-12] MEDS: ASPIRIN 81 MG CHEW TAB CHEW SCH (08:14)
[2016-08-12] MEDS: SERTRALINE HCL 100 MG TAB PO SCH (08:15)
[2016-08-12] MEDS: BUDESONIDE-FORMOTEROL 80/4.5 MCG INHALER INH SCH (08:15)
[2016-08-12] MEDS: DOCUSATE SODIUM 50 MG/SENNA 8.6 MG TAB PO SCH (08:15)
[2016-08-12] MEDS: MAGNESIUM HYDROXIDE SUSP 30 ML CUP PO SCH (08:15)
[2016-08-12] MEDS: BRIMONIDINE TARTRATE 0.2% OPHT SOLN 5 ML BTL EACH EYE SCH ×2 (08:16→14:18)
[2016-08-12] MEDS: TIMOLOL MALEATE 0.5% OPHT SOLN 5 ML BTL EACH EYE SCH (08:16)
[2016-08-12 08:40] LABS: BANDS 4 % (0-6); NEUTROPHIL # MANUAL DIFF 22.4 TH/MM3 (1.8-7.7); PLATELET ESTIMATE SMEAR NORMAL (NORMAL); PLATELET MORPHOLOGY NORMAL (NORMAL); POLYS (SEG NEUTROPHILS) 89 % (16-70); PROMYELOCYTES 1 % (0-0); SCAN/DIFF FINAL DIFF MANUAL; WBC DIFF SAMPLE 100
[2016-08-12 08:41] LABS: OVALOCYTES 1+ (NORMAL)
[2016-08-12] MEDS ORDERED: PHARMACY ORDERED LAB ONE (10:45)
[2016-08-12 12:00] VITALS: BP 115/58; PULSE 88; RESP 20; TEMP 96.8; O2SAT 95
--- NOTE | 2016-08-12 12:40 | HHI.PR ---
Subjective Remarks Discussed with nursing and PT. Remains weak and confused. Ate 2 bites for breakfast. Too confused to follow commands with PT but does move all limbs. Patient says "no" to asking about pain. Objective Vitals Vital Signs Date Time Temp Pulse Resp B/P Pulse Ox O2 Delivery O2 Flow Rate FiO2 08/12/16 08:00 97.1 92 20 130/66 95 08/12/16 08:00 Nasal Cannula 2.00 08/12/16 00:00 97.0 95 21 131/72 95 08/11/16 22:00 96 Nasal Cannula 2.00 08/11/16 20:00 96.0 88 19 124/65 96 08/11/16 16:00 95.7 94 22 154/66 91 I/O 08/11/16 08/11/16 08/11/16 08/12/16 08/12/16 08/12/16 07:00 15:00 23:00 07:00 15:00 23:00 Intake Total 500 ml 938 ml 390 ml 618 ml Balance 500 ml 938 ml 390 ml 618 ml Intake Oral 20 ml 30 ml 30 ml IV Total 500 ml 918 ml 360 ml 588 ml # Voids 4 2 2 # Bowel Movements 0 0 0 Result Diagram: 08/12/16 0630 08/12/16 0630 Objective Remarks GENERAL: Frail elderly female patient. Confused. SKIN: Warm and dry. HEAD: Normocephalic. EYES: No scleral icterus. No injection or drainage. NECK: Supple, trachea midline. No JVD or lymphadenopathy. CARDIOVASCULAR: Regular rate and rhythm without murmurs, gallops, or rubs. RESPIRATORY: Nonlabored breathing on nasal cannula. Coarse lung sounds anteriorly and bilaterally. GASTROINTESTINAL: Abdomen soft, non-tender, nondistended. EXTREMITIES: No cyanosis, or edema. NEUROLOGICAL: awake and alert oriented only to self. does not follow commands. Procedures A/P Problem List: (1) Sepsis ICD Code: A41.9 Status: Acute (2) UTI (urinary tract infection) ICD Code: N39.0 Status: Acute (3) Community acquired pneumonia ICD Code: J18.9 Status: Acute (4) Dementia ICD Code: F03.90 Status: Acute (5) Pleural effusion, right ICD Code: J90 Status: Acute (6) COPD (chronic obstructive pulmonary disease) ICD Code: J44.9 Status: Acute Assessment and Plan -Sepsis due to UTI. Sepsis now resolved. Ct scan of ab/pel done was negative on admission. Urine culture grew Escherichia coli. Repeat urine cultures no growth in 48 hours. -One low grade fever on 08/09 without recurrence. Blood cultures 08/09 and urine culture are no growth to date. Chest x-ray August 09 showing right sided pleural effusion and mild diffuse interstitial prominence. BNP is pending. No history of cardiac disease as per the family. Consider low-dose Lasix. S/p 3 days vancomycin and cefepime IV, now changed to PO levaquin Appreciate infectious disease input. -Persistent leukocytosis. Unclear etiology. Infectious workup at this time is essentially negative. Possible new onset hematologic malignancy. Discussed with family. CBC from earlier this year from her PCP was reviewed as was normal. Offered hematology consultation although at this point in time and will not likely change her clinical picture or prognosis as the more significant concern is the advanced dementia and decline she has had from her hospitalization. They are not wanting to pursue aggressive workup at this time and specifically declined bone marrow biopsy. -Right LE cellulitis - clinically improved/resolved. Right pleural effusion mild interstitial edema on cxr 08/09- stable on NC, BNP was elevated, will give lasix 20 mg IV. COPD with no exacerbation - on oxygen intermittently at the assisted living facility. -continue advair - neb treatment as needed Dementia - appears to be advanced. I discussed with her daughter and granddaughter today. Reportedly the patient was still ambulatory prior to admission. She has declined significantly since the hospitalization. She is max assist with physical therapy. Remains weak and confused, not following commands. glaucoma -Continue with home medication. Hypokalemia. magnesium level OK. improved, recheck BMP a.m. -DVT prophylaxis with SCD's DNR status - patient has had a significant decline since her hospitalization but was previously ambulatory. I discussed with her daughter and granddaughter today and they have opted for her to go with [facility] hosp[facility]. They're adamant that she return to her assisted living facility [facility]. They declined assisted facility. They feel that she perked up somewhat yesterday. We discussed the seeing opioid medications and continuing physical therapy through the weekend. Planning for discharge the assisted living facility on Sunday. They are aware she continues to decline over the weekend that she will likely be nearing the end of her life when she returns to the assisted living facility. They are hopeful however that she will perk up and go on to enjoy some quality of life on hospice. It appears that the patient is continuing to decline at this point unfortunately. Problem Qualifiers (1) Sepsis: Qualified Code: A41.9 - Sepsis, due to unspecified organism (2) UTI (urinary tract infection): Qualified Code: N30.00 - Acute cystitis without hematuria Afshan Espinoza MD Aug 12, 2016 12:40
[2016-08-12] MEDS: LEVOFLOXACIN 750 MG TAB PO SCH (15:00)
[2016-08-12 16:00] VITALS: BP 118/64; PULSE 84; RESP 20; TEMP 97.2; O2SAT 96
[2016-08-12] MEDS: ACETAMINOPHEN 325 MG TAB PO PRN (17:22)
[2016-08-12] MEDS ORDERED: POTASSIUM CHLORIDE 20 MEQ CONTROLLED RELEASE TAB PO ONE (19:15)
[2016-08-12] MEDS ORDERED: FUROSEMIDE 20 MG/2 ML VIAL IV PUSH ONE (19:15)
--- NOTE | 2016-09-13 14:45 | HHI.DS ---
Summary Note Date of : Aug 12, 2016 Time Of : 1952 Admission Date Aug 03, 2016 at 02:02 Admitting Diagnosis urosepsis Diagnosis at Time of : (1) Sepsis ICD Code: A41.9 (2) UTI (urinary tract infection) ICD Code: N39.0 (3) Community acquired pneumonia ICD Code: J18.9 (4) Dementia ICD Code: F03.90 (5) Pleural effusion, right ICD Code: J90 (6) COPD (chronic obstructive pulmonary disease) ICD Code: J44.9 Procedures None Brief History patient is a 85 y/o female, long-term resident, with history of dementia who was sent to the hospital because of fever and altered mental status. information is limited due to the patient's dementia. she was noted to have a fever at the time of presentation to ER. according to ER noted she was not as alert as her baseline earlier. Imaging Last Impressions Chest X-Ray 08/09/16 0000 Signed Impressions: Service Date/Time: Tuesday, August 09, 2016 09:14 - CONCLUSION: Small right-sided pleural effusion and mild diffuse interstitial prominence. Brock Ch MD Renal Ultrasound 08/05/16 0000 Signed Impressions: Service Date/Time: Friday, August 05, 2016 18:53 - CONCLUSION: 1. No evidence of hydronephrosis. 2. Trace of right perinephric fluid. Nolberto Walton MD Abdomen/Pelvis CT 08/03/16 0000 Signed Impressions: Service Date/Time: July 00:54 - CONCLUSION: 1. No acute abnormality to explain the patient's pain. 2. 1.6 x 1.4 cm nodule involving the right lung base. A short-term followup CT of the thorax in 3-6 months is suggested. At this point a malignancy cannot be excluded. 3. 2.6 cm cystic structure within the right adnexa which is likely ovarian in nature. It can be further assessed with a short-term followup pelvic ultrasound if clinically warranted. 4. Colonic diverticulosis. Jaden Hendrix Jr., MD Head CT 08/02/16 1061 Signed Impressions: Service Date/Time: July 00:50 - CONCLUSION: No acute disease. Jaden Hendrix Jr., MD Hospital Course -Sepsis due to UTI. Sepsis now resolved. Ct scan of ab/pel done was negative on admission. Urine culture grew Escherichia coli. Repeat urine cultures no growth. Blood cultures were negative. -One low grade fever on 08/09 without recurrence. Blood cultures 08/09 and urine culture are no growth to date. Chest x-ray August 09 showing right sided pleural effusion and mild diffuse interstitial prominence. No history of cardiac disease as per the family. . S/p 3 days vancomycin and cefepime IV, now changed to PO levaquin Appreciate infectious disease input. -Persistent leukocytosis. Unclear etiology. Infectious workup at this time is essentially negative. Possible new onset hematologic malignancy. Discussed with family. CBC from earlier this year from her PCP was reviewed as was normal. Offered hematology consultation although at this point in time and will not likely change her clinical picture or prognosis as the more significant concern is the advanced dementia and decline she has had from her hospitalization. They are not wanting to pursue aggressive workup at this time and specifically declined bone marrow biopsy. -Right LE cellulitis - clinically improved/resolved. Right pleural effusion mild interstitial edema on cxr 08/09- stable on NC, BNP was elevated, given lasix 20 mg IV. COPD with no exacerbation - on oxygen intermittently at the assisted living facility. Dementia - appears to be advanced. I discussed with her daughter and granddaughter. Reportedly the patient was still ambulatory prior to admission. She had declined significantly since the hospitalization. She was max assist with physical therapy. Remained weak and confused, not following commands. glaucoma Hypokalemia. magnesium -DVT prophylaxis with SCD's DNR status - patient has had a significant decline since her hospitalization but was previously ambulatory. I discussed with her daughter and granddaughter today and they have [facility]. They're adamant that she return to her assisted living facility [facility]. They declined [facility] facility. They feel that she perked up somewhat yesterday. We discussed the seeing opioid medications and continuing physical therapy through the weekend. Planning for discharge the assisted living facility on Sunday. They are aware she continues to decline over the weekend that she will likely be nearing the end of her life when she returns to the assisted living facility. They are hopeful however that she will perk up and go on to enjoy some quality of life on hospice. Unfortunately the patient continued to decline and . Afshan Espinoza MD September 13, 2016 14:45
== END 2016-08-13 02:57 | disposition expired | DRG 871 ==
LOC: NEPE 22:28 → NEDA 08-03 02:02 → NEDH 08-03 06:02 → N07A 08-03 15:59
PROVIDERS: ADMIT Family Medicine; ATTEND Family Medicine
DX: A41.9 Sepsis, unspecified organism (principal); J18.9 Pneumonia, unspecified organism; J90 Pleural effusion, not elsewhere classified; J44.0 Chronic obstructive pulmonary disease with (acute) lower respiratory infection; L03.115 Cellulitis of right lower limb; F03.90 Unspecified dementia, unspecified severity, without behavioral disturbance, psychotic disturbance, mood disturbance, and anxiety; N30.00 Acute cystitis without hematuria; B96.20 Unspecified Escherichia coli [E. coli] as the cause of diseases classified elsewhere; E78.5 Hyperlipidemia, unspecified; E87.6 Hypokalemia; K57.30 Diverticulosis of large intestine without perforation or abscess without bleeding; M81.0 Age-related osteoporosis without current pathological fracture; H40.9 Unspecified glaucoma; Z66 Do not resuscitate; Z85.51 Personal history of malignant neoplasm of bladder
CPT/HCPCS: 70450; 71010; 71020; 74177; 76775; 76937; 80048; 80053; 80202; 81001; 83605; 83690; 83735; 83880; 84100; 84484; 85007; 85025; 85027; 85610; 85730; 87040; 87077; 87086; 87186; 93005; 96365; J0692; J0696; J3370; J7030; J7050; P9612; Q9967